=== PATIENT | female | born 1935 | race Caucasian/White ===

== ENCOUNTER → 2016-11-01 | Outpatient (CLI) | payer MEDICARE ==
[~2016-11-01] MED LIST: ACETAMINOPHEN PO; AMLO10TA2 PO; AMOX500C2 PO; ASCO500T20 PO; ASP325T PO; ASP81CT PO; ASPI-86; ASPI-892 PO; BENA40TA59 PO; BNZ40T PO; CA C1TAB53 PO; CA C1TAB80 PO; CALC600T PO; CALTRATE 600 +1 EACH PO; CARV25TA PO; CEPH500C PO; CHOL10003 PO; CRV25T PO; DCS100C PO; DOXY100C2 PO; E400C PO; ECHI350C PO; ECHI400C3 PO; ECHINACEA PO; EST.625T PO; EST30C VG; ESTR1TAB24 PO; GLUC1TAB PO; HYDR-707 PO; Ibuprofen PO; LUTE10TA PO; LUTE20CA2 PO; LUTE20TA PO; MAGN100T3 PO; MAGNESIUM W/ ZINC PO; MECL-124 PO; MELO-198 PO; MPR22T TP; MULT-142 PO; MULT-608 PO; MULT1TAB12 PO; OMEG-8 PO; OMEG100032 PO; OMG1KC PO; OXYC-197 PO; OXYC1TAB12 PO; PRM25T PO; TRM50T PO; VALS80TA30 PO; VLS80C PO
--- NOTE | 2016-11-01 14:29 | Diagnostic Imaging Report ---
PROCEDURE: MRI left joint lower extremity without contrast. TECHNIQUE: Multiplanar, multisequence non contrast-enhanced MRI of the left lower extremity was accomplished. INDICATION: Left knee pain. FINDINGS: There is a lobulated Evangelista's cyst seen measuring 2.9 x 1.9 x 7.7 cm with small amount of adjacent free fluid suggestive of leakage. There is a small suprapatellar effusion. The extensor mechanism appears intact. The ACL demonstrates increased signal with cystic changes in the tibia underneath its insertion site likely related to mucinous degeneration. There is no high-grade tear. The PCL demonstrates thickening and slight increased signal suggestive of an old injury. The posterior horn of the medial meniscus demonstrates a complex tear with displacement of the meniscus material and approximately 1 cm gap in the meniscus posterior horn. There is extension of the tear into the body of the meniscus. No definite tear in the anterior horn. The lateral meniscus demonstrates no definite tear. There is severe cartilage thinning in the medial compartment and mild cartilage thinning in the lateral compartment. The patellofemoral compartment demonstrates mild to moderate cartilage thinning in the lateral facet and severe cartilage thinning in the medial facet with subchondral edema seen. The lateral collateral ligament complex demonstrates no tears. There is mild edema compatible with sprain along the MCL. There is slight buckling of the MCL by partial extrusion of the body of the medial meniscus. IMPRESSION: 1. Leaking Evangelista's cyst. 2. Complex tear with displacement and a gap in the meniscus material in the posterior horn of the medial meniscus. 3. Advanced osteoarthritis changes with severe cartilage thinning in the medial compartment and in the medial aspect of the patella. Dictated by: Dictated on workstation # [id number]
== END ==
LOC: RAD 12:57
PROVIDERS: ATTEND Family Medicine
DX: M25.562 Pain in left knee (principal); M79.605 Pain in left leg
CPT/HCPCS: 73721

== ENCOUNTER 2016-12-20 09:57 | Outpatient (CLI) | payer MEDICARE ==
[~2016-12-20] VITALS: Ht 162.6 cm; Wt 70.0 kg
[~2016-12-20 09:57] MED LIST changes: -MULT-142 PO; -OMEG100032 PO; -OXYC-197 PO
[2016-12-20 10:07] VITALS: BP 129/59
[2016-12-20] MEDS ORDERED: OMEG100032 PO (10:22)
[2016-12-20] MEDS ORDERED: MULT-142 PO (10:22)
[2016-12-20] MEDS ORDERED: AMLO10TA2 PO (10:22)
[2016-12-20 11:03] LABS: BASOPHILS # (AUTO) 0.1 10^3/uL (0.0-0.1); BASOPHILS % (AUTO) 1 % (0-10); EOSINOPHILS # (AUTO) 0.1 10^3/uL (0.0-0.3); EOSINOPHILS % (AUTO) 2 % (0-10); LYMPHOCYTES # (AUTO) 1.7 X 10^3 (1.0-4.0); LYMPHOCYTES % (AUTO) 32 % (12-44); MEAN CORPUSCULAR HEMOGLOBIN 30 PG (25-34); MEAN CORPUSCULAR HGB CONC 34 G/DL (32-36); MEAN CORPUSCULAR VOLUME 90 FL (80-99); MEAN PLATELET VOLUME 9.4 FL (7.4-10.4); MONOCYTES # (AUTO) 0.4 X 10^3 (0.0-1.0); MONOCYTES % (AUTO) 8 % (0-12); NEUTROPHILS % (AUTO) 58 % (42-75); PLATELET COUNT 224 10^3/uL (130-400); RED BLOOD COUNT 4.31 10^6/uL (4.35-5.85); RED CELL DISTRIBUTION WIDTH 13.3 % (10.0-14.5); WHITE BLOOD COUNT 5.3 10^3/uL (4.3-11.0)
[2016-12-20 11:05] LABS: BILIRUBIN,URINE NEGATIVE (NEGATIVE); KETONES,URINE NEGATIVE (NEGATIVE); LEUKOCYTE ESTERASE ,URINE NEGATIVE (NEGATIVE); NITRITE,URINE NEGATIVE (NEGATIVE); PH,URINE 7 (5-9); PROTEIN,URINE NEGATIVE (NEGATIVE); UROBILINOGEN,URINE NORMAL (NORMAL)
[2016-12-20 11:15] LABS: SQUAMOUS EPITHELIAL CELL,UR RARE /HPF
[2016-12-20 11:19] LABS: PROTHROMBIN TIME PATIENT 12.7 SEC (12.2-14.7)
[2016-12-20 11:24] LABS: ERYTHROCYTE SEDIMENTATION RATE 11 MM/HR (0-30)
[2016-12-20 11:30] LABS: ALANINE AMINOTRANSFERASE 15 U/L (0-55); ALBUMIN 4.1 G/DL (3.2-4.5); ANION GAP 8 MMOL/L (5-14); ASPARTATE AMINO TRANSFERASE 24 U/L (5-34); BILIRUBIN,TOTAL 0.4 MG/DL (0.1-1.0); BLOOD UREA NITROGEN 13 MG/DL (7-18); BUN/CREATININE RATIO 19; CALCIUM 9.9 MG/DL (8.5-10.1); CARBON DIOXIDE 24 MMOL/L (21-32); CHLORIDE 107 MMOL/L (98-107); CREATININE SERUM 0.67 MG/DL (0.60-1.30); GFR ESTIMATED > 60; GLUCOSE 84 MG/DL (70-105); POTASSIUM 4.1 MMOL/L (3.6-5.0); SODIUM 139 MMOL/L (135-145); TOTAL PROTEIN 7.1 G/DL (6.4-8.2)
--- NOTE | 2016-12-20 13:35 | Diagnostic Imaging Report ---
INDICATION: Knee arthroplasty, preoperative evaluation. Compared 06/23/2013. FINDINGS: The heart size is felt to be within normal limits, and there is no abnormal distention of the vascularity. Ferrari thoracic spondylosis chronic. There is some old calcified benign granulomatous residua in the azygos portion of the mediastinum as well as right hilum. No noncalcified or suspicious chest nodule. There are postsurgical changes with bone anchor placed in the right humeral head. IMPRESSION: Benign granulomatous residua. No acute-appearing cardiopulmonary abnormality. Chronic degenerative and postoperative changes noted. Dictated by: Dictated on workstation # [id number]
== END 2016-12-20 11:00 | disposition home or self-care (01) ==
LOC: PREOP 09:57
PROVIDERS: ATTEND Orthopaedic Surgery
DX: Z01.811 Encounter for preprocedural respiratory examination (principal); Z01.812 Encounter for preprocedural laboratory examination; Z11.2 Encounter for screening for other bacterial diseases; M17.12 Unilateral primary osteoarthritis, left knee; R53.83 Other fatigue
CPT/HCPCS: 36415; 71020; 80053; 81000; 85025; 85610; 85652; 86850; 86900; 86901; 87081

== ENCOUNTER 2016-12-27 06:10 | Inpatient (IN) | payer MEDICARE ==
--- NOTE | 2016-12-25 07:26 | HISTORY AND PHYSICAL ---
DICTATING PHYSICIAN: Dr. Nick DATE OF ADMISSION: 12/27/2016 Inpatient admission for left total knee arthroplasty. HISTORY: The patient is a 81-year-old female with complaints of progressively worsening left knee pain. She reports activity limitations because of the knee. She has tried activity modifications, rest and anti-inflammatories without relief. She reports that she is unable to walk for exercise because of her knee, which is interfering with her cardiac rehab. Radiographs reveal moderate medial joint space and patellofemoral joint space narrowing. Due to functional impairment and failure to improve with conservative measures, the patient has elected to proceed with surgical intervention. REVIEW OF SYSTEMS: No chest pain, no shortness of breath. No dysuria. PAST MEDICAL HISTORY: 1. Congestive heart failure. 2. Hypertension. PAST SURGICAL HISTORY: 1. Cholecystectomy. 2. Hysterectomy. 3. Trigger finger. 4. Cataract. 5. Right rotator cuff. 6. Broken nose. FAMILY HISTORY: Noncontributory. PRIMARY CARE PROVIDER: Dr. Cleveland. Geophysics Scientist: Dr. Good ALLERGIES: MORPHINE. SOCIAL HISTORY: The patient is a former smoker who quit in 1952. She denies alcohol use. PHYSICAL EXAMINATION: The patient's well-developed, well-nourished, in no acute distress. HEENT: Normocephalic, atraumatic. Pupils are equal, round, and reactive. Oropharynx is clear. NECK: Supple with lymphadenopathy. LUNGS: Clear to auscultation. HEART: Regular rate and rhythm. ABDOMEN: Soft, nontender, nondistended. EXTREMITY EXAM: The left knee demonstrates a slight effusion. She is tender along her lateral joint line and has pain medially with Jessica's. She has mild varus alignment. No skin lesions are noted, sensation is intact throughout. She ambulates with an antalgic gait. She is unable to arise from a seated position without assistance due to her knee pain. She has negative straight leg raise. Sensation is intact throughout. She has negative straight leg raise. IMPRESSION: Severe left knee osteoarthritis, unresponsive to conservative measures. PLAN: Left total knee arthroplasty. The risks, benefits, options, ramifications and recovery were discussed at length with the patient. She understands and wishes to proceed. Job ID: [id number] Dictated Date: 12/19/2016 11:25:00 Digital Account Executive Date: 12/19/2016 12:18:52/christiano
[~2016-12-27] VITALS: Ht 162.6 cm; Wt 70.0 kg
[~2016-12-27 06:10] MED LIST changes: +MULT-142 PO; +OMEG100032 PO
[2016-12-27] MEDS: LACTATED RINGERS 1,000 ML IV PRN ×2 (06:53→08:38)
[2016-12-27] MEDS ORDERED: DEXAMETHASONE PF 10 MG/ML (DECADRON) VIAL ONE (07:06)
[2016-12-27] MEDS ORDERED: ONDANSETRON 4 MG/2 ML (SDV) Z0FRAN ONE (07:06)
[2016-12-27] MEDS ORDERED: proPOfol 200 MG/20 ML (DIPRIVAN) VIAL IV ONE (07:06)
[2016-12-27] MEDS ORDERED: LIDOCAINE PF 2% 10 ML (XYLOCAINE) AMP ONE (07:06)
[2016-12-27] MEDS ORDERED: SEVOFLURANE (ULTANE) 15 ML INHAL SOLN ONE (07:06)
[2016-12-27] MEDS ORDERED: LACTATED RINGERS 1,000 ML IV ONE ×2 (07:06→08:36)
[2016-12-27] MEDS ORDERED: fentaNYL INJECTION 250 MCG/5 ML AMP ONE (07:06)
[2016-12-27] MEDS ORDERED: ACETAMINOPHEN 325 MG TABLET/CAPLET (TYLENOL) PO PRN (07:15)
[2016-12-27] MEDS ORDERED: oxyCODONE/APAP 5/325MG (PERCOCET 5) TABLET PO PRN (07:15)
[2016-12-27] MEDS ORDERED: diphenhydrAMINE 50 MG/ML INJ (BENADRYL) IVP PRN (07:15)
[2016-12-27] MEDS ORDERED: ONDANSETRON 4 MG/2 ML (SDV) Z0FRAN IVP PRN ×2 (07:15→09:30)
[2016-12-27] MEDS ORDERED: fentaNYL INJECTION 1,000 MCG in NS (IVPB) 80 ML IV SCH (07:15)
[2016-12-27] MEDS ORDERED: CEFUROXIME 1.5 GM/NS 50 ML IVPB IV ONE ×2 (07:15)
--- NOTE | 2016-12-27 07:24 | Progress Note-Pre Operative ---
Pre-Operative Progress Note H&P Reviewed The H&P was reviewed, patient examined and no changes noted. Date H&P Reviewed: Dec 27, 2016 Time H&P Reviewed: 07:11 Pre-Operative Diagnosis: left knee primary osteoarthritis MATA HART MD Dec 27, 2016 07:24
--- NOTE | 2016-12-27 07:25 | Progress Note-Post Operative ---
Post-Operative Progess Note Surgeon (s)/Personal Secretary (s) Surgeon MATA HART MD Personal Secretary: Hector Mcmillan Pre-Operative Diagnosis left knee primary osteoarthritis Post-Operative Diagnosis left knee primary osteoarthritis Post-Op Procedure Note Date of Procedure: Dec 27, 2016 Name of Procedure Performed: left total knee arthroplasty Description of the Procedure: see operative note Findings of the Procedure osteoarthritis Anesthesia Type GETA Estimated blood loss (mL): minimal Packing: none Specimen(s) collected/removed none MATA HART MD Dec 27, 2016 07:25
[2016-12-27] MEDS ORDERED: ROCURONIUM 50 MG/5 ML (ZEMURON) VIAL IV ONE (08:00)
[2016-12-27] MEDS ORDERED: GLYCOPYRROLATE 0.2 MG/ML (ROBINUL) 2 ML VIAL ONE (08:28)
[2016-12-27] MEDS ORDERED: NEOSTIGMINE (BLOXIVERZ ) 1 MG/1ML 10 ML VIAL ONE (08:28)
[2016-12-27] MEDS ORDERED: fentaNYL INJECTION 100 MCG/2 ML AMP IVP PRN (09:30)
[2016-12-27] MEDS ORDERED: HYDROmorphone (DILAUDID) 2 MG/ML VIAL IVP PRN (09:30)
--- NOTE | 2016-12-27 09:42 | Diagnostic Imaging Report ---
INDICATION: Left knee pain AP and lateral views of left knee show postoperative changes from left knee arthroplasty. The components of the prosthesis are in good position. Alignment is normal. IMPRESSION: Good alignment left knee following arthroplasty. Dictated by: Dictated on workstation # [id number]
[2016-12-27 10:20] VITALS: BP 106/52
--- NOTE | 2016-12-27 10:32 | Progress Note-Standard ---
Standard Progress Note Progress Notes/Assess & Plan Progress/Assessment & Plan Post op check No complaints Radiographs--HW well positioned without fracture LLE--2 plus DP pulse with intact sensation throughout. Intact DF and PF of toes and ankle s/p LTKA mobilize as able MATA HART MD Dec 27, 2016 10:32
[2016-12-27] MEDS ORDERED: OXYC-197 PO (10:35)
[2016-12-27] MEDS ORDERED: fentaNYL PCA 300 MCG/30 ML VIAL ONE (10:59)
[2016-12-27] MEDS: NS IV 1000 ML 1,000 ML IV SCH ×2 (11:04→23:03)
--- NOTE | 2016-12-27 11:18 | Consultation-Hospitalist ---
HPI History of Present Illness: HPI/Chief Complaint CC: Medical management following left total knee arthroplasty uncomplicated by Dr Nick HPI: This is a 81yoWF patient of Dr Cleveland's that presents to [facility] following an uncomplicated left knee replacement per Dr Nick. Her Chronic Manager is Dr Good whom I am consulting for close monitoring. Pt is currently sleeping and the family is at the bedside and her daughter is an RN at [facility]. I reviewed her medical hx and home meds. Will monitor labs closely and check iron level. Source: family Exam Limitations: clinical condition (post op sedation) Date Seen 12/27/16 Attending Physician Tito Nick MD PCP Luis Alberto Cleveland MD Referring Physician Date of Admission Dec 27, 2016 at 06:10 Home Medications & Allergies Home Medications Reviewed patient Home Medication Reconciliation Form Allergies Allergies Coded Allergies morphine (Verified Allergy, Mild, 04/12/13) Past Kukfvgv-Esaujv-Vywzpx Hx Patient Social History Alcohol Use: Denies Use Recreational Drug Use: No Smoking Status: Former Smoker Physical Abuse Screen: No Sexual Abuse: No Recent Foreign Travel: No Contact w/other who traveled: No Recent Hopitalizations: No Recent Infectious Disease Expo: No Immunizations Up To Date Tetanus Booster (TDap): Less than 5yrs Date of Pneumonia Vaccine: Jun 17, 2005 Date of Influenza Vaccine: Jun 17, 2016 Seasonal Allergies Seasonal Allergies: Yes Surgeries HX Surgeries: Yes (CATARACT REMOVAL, SHOULDER SX, SEVERAL SX ON FINGERS FOR ARTHRITIS) Surgeries: Eye Surgery, Orthopedic Respiratory Hx Respiratory Disorders: No Cardiovascular Hx Cardiovascular Disorders: Yes (LEFT BUNDLE BRANCH BLOCK, CHF) Cardiac Disorders: Cardiomyopathy, Hypertension Neurological Hx Neurological Disorders: No Reproductive System Hx Reproductive Disorders: No Genitourinary Hx Genitourinary Disorders: Yes (PROLAPSED BLADDER) Gastrointestinal Hx Gastrointestinal Disorders: No Musculoskeletal Hx Musculoskeletal Disorders: Yes Musculoskeletal Disorders: Arthritis Endocrine Hx Endocrine Disorders: No HEENT HX ENT Disorders: Yes HEENT Disorders: Cataract, Macular Degeneration Cancer Hx Cancer: No Psychosocial Hx Psychiatric Problems: No Integumentary HX Skin/Integumentary Disorder: No Blood Transfusions Hx Blood Disorders: No Family Medical History Significant Family History: No Pertinent Family Hx Family Hx: Arthritis 19 MOTHER G8 SISTER Asthma 19 MOTHER Cardiovascular disease G8 BROTHER G8 SISTER Cataracts G8 BROTHER G8 SISTER Colon cancer G8 SISTER Deafness or hearing loss G8 SISTER Diabetes mellitus G8 BROTHER G8 SISTER Glaucoma 19 FATHER Hypercholesterolemia G8 BROTHER Hypertension 19 MOTHER G8 BROTHER G8 SISTER Kidney disease G8 BROTHER Osteoporosis G8 SISTER Thyroid disease G8 SISTER Tuberculosis 19 FATHER No Family History of: AIDS Abdominal aortic aneurysm Cowlitz's disease Alcoholism Alzheimer's disease Aphasia Cancer of mouth Completed stroke Congenital disease Congenital heart disease Coronary thrombosis Cystic fibrosis Dementia Drug abuse Dysphasia Fibrocystic disease of breast Gastroenteritis Headache disorder Infertility Myocardial infarction Neoplasm Parkinson's disease Prostate cancer Psychosocial problem Respiratory disorder Seizure disorder Severe allergy Visual disorder Review of Systems ROS-Unable to Obtain: pt sleeping Constitutional: see HPI Musculoskeletal: joint pain (left ankle pain prior to surgery) Physical Exam Physical Exam Vital Signs Vital Sign - Last 12Hours 12/27/16 11:10 Resp 16 Capillary Refill : General Appearance: No Apparent Distress, WD/WN, Chronically ill, Other ( sleeping soundly) Eyes: Bilateral Eye Normal Inspection, Bilateral Eye PERRL Neck: Normal Inspection, Supple Respiratory: Chest Non Tender, Lungs Clear, Normal Breath Sounds, No Accessory Muscle Use, No Respiratory Distress Cardiovascular: Regular Rate, Rhythm, No Edema, No Gallop, No JVD, No Murmur, Normal Peripheral Pulses Gastrointestinal: Normal Bowel Sounds, No Organomegaly, Soft Back: Normal Inspection Extremity: Normal Capillary Refill, Normal Inspection, Non Tender, No Calf Tenderness, No Pedal Edema, Other (left knee in dressing) Neurologic/Psychiatric: No Motor/Sensory Deficits, Other (sleeping post op) Skin: Normal Color, Warm/Dry Lymphatic: No Adenopathy Assessment/Plan Admission Diagnosis Assessment: Left total knee arthroplasty POD # 0 HTN Cardiomyopathy non-ischemic type 30% EF on cardiac cath HLP PHTN OA Assessment and Plan Plan: Cardiology consultation Minimize fluid to prevent overload Pain meds PT/OT BM regimen Check iron level along with basic labs daily Clinical Quality Measures DVT/VTE Risk/Contraindication: Risk Factor Score Per Nursin RFS Level Per Nursing on Admit: 4+=Very High JIM CORTEZ DO Dec 27, 2016 11:18
[2016-12-27] MEDS: SENNA W/DOCUSATE (SENOKOT S) TABLET PO SCH ×2 (11:37→20:32)
--- NOTE | 2016-12-27 11:53 | Consultation-Cardiology ---
HPI-Cardiology Cardiology Consultation Date of Consultation 12/27/16 Date of Admission Indication: Hx CHF, HTN HPI Patient is a very pleasant 81 y/o female with history of CHF, HTN, HLP. Underwent Left total knee athroplasty by Dr. Nick earlier today. Complaining on mild leg pain. Denies any CP, dyspnea, dizziness, lightheadedness. Patient is resting comfortably at this time. Patient was seen and evaluated with Daria, laying down comfortably in bed. Denied any pain at this time, had extensive cardiac history as described above, underwent arthroplasty with Dr. Nick, recovering well. Home Medications & Allergies Allergies: Coded Allergies: morphine (Verified Allergy, Mild, 04/12/13) Home Medication List Reviewed: Yes IJP-Eljnrr-Rjfmuo Hx Patient Social History Marital Status: Employed/Student: retired Alcohol Use: Denies Use Recreational Drug Use: No Smoking Status: Former Smoker Recent Foreign Travel: No Recent Infectious Disease Expo: No Recent Hopitalizations: No Physical Abuse Screen: No Sexual Abuse: No Immunizations Up To Date Tetanus Booster (TDap): Less than 5yrs Date of Pneumonia Vaccine: Jun 17, 2005 Date of Influenza Vaccine: Jun 17, 2016 Past Medical History CHF, HTN Family Medical History Significant Family History: No Pertinent Family Hx Family History: Arthritis 19 MOTHER G8 SISTER Asthma 19 MOTHER Cardiovascular disease G8 BROTHER G8 SISTER Cataracts G8 BROTHER G8 SISTER Colon cancer G8 SISTER Deafness or hearing loss G8 SISTER Diabetes mellitus G8 BROTHER G8 SISTER Glaucoma 19 FATHER Hypercholesterolemia G8 BROTHER Hypertension 19 MOTHER G8 BROTHER G8 SISTER Kidney disease G8 BROTHER Osteoporosis G8 SISTER Thyroid disease G8 SISTER Tuberculosis 19 FATHER No Family History of: AIDS Abdominal aortic aneurysm Canyon's disease Alcoholism Alzheimer's disease Aphasia Cancer of mouth Completed stroke Congenital disease Congenital heart disease Coronary thrombosis Cystic fibrosis Dementia Drug abuse Dysphasia Fibrocystic disease of breast Gastroenteritis Headache disorder Infertility Myocardial infarction Neoplasm Parkinson's disease Prostate cancer Psychosocial problem Respiratory disorder Seizure disorder Severe allergy Visual disorder Constitutional: No chills, No diaphoresis, No dizziness, No fever, No malaise EENTM: No blurred vision, No double vision, No vision loss Respiratory: No cough, No dyspnea on exertion Cardiovascular: No chest pain, No palpitations Gastrointestinal: No abdominal pain, No constipation Genitourinary: No dysuria, No frequency, No hematuria Musculoskeletal: No back pain, No joint pain Skin: No lesions, No rash Psychiatric/Neurological: Denies Anxiety, Denies Depressed ECG Impression ECG Initial ECG Rhythm: Normal Sinus Physical Exam Vital Signs Vital Sign - Last 12Hours 12/27/16 11:10 Resp 16 Capillary Refill : General Appearance: No Apparent Distress, WD/WN HEENT: PERRL/EOMI, TMs Normal, Normal ENT Inspection, Pharynx Normal Neck: Full Range of Motion, Normal Inspection, Non Tender, Supple Respiratory: Chest Non Tender, Lungs Clear, Normal Breath Sounds, No Accessory Muscle Use, No Respiratory Distress Cardiovascular: Regular Rate, Rhythm, No Edema, No Gallop, No JVD, No Murmur, Normal Peripheral Pulses Gastrointestinal: Non Tender, Soft Rectal: Deferred Back: No CVA Tenderness Extremity: No Calf Tenderness, Pedal Edema (LLE) Neurologic/Psychiatric: Alert, Oriented x3, potato peeler II-XII Norm as Tested Skin: Normal Color, Warm/Dry Lymphatic: No Adenopathy A/P-Cardiology Assessment/Plan S/P Left total knee athroplasty by Dr. Ruiz, POD #1. History of syncope, unknown etiology, no further syncopal episodes were reported, she was having some orthostatic dizziness, reported improvement. Unable to tolerate beta blockers.Continue to monitor. Congestive heart failure with chronic compensated left ventricular diastolic dysfunction, normal systolic function with ejection fraction 60 percent, moderate mitral regurgitation, moderate tricuspid regurgitation, moderate aortic regurgitation, pulmonary artery pressure of 35-40 mmHg, last echocardiogram was done in February 2016. Continue to monitor. Hypertension,history of hypotension in the past. Continue to monitor blood pressure. Hyperlipidemia, last lipid profile was done in June 2016, total cholesterol 218 HDL 84 triglyceride 91, LDL 116. Continue current medications and continue to monitor. Cardiac catheterization was done in June 2010 showing no significant obstructive disease, ejection fraction at that time was 25-30 percent it has improved since then. Continue to monitor. Pulmonary hypertension with most recent PA pressure 35-40 mmHg, continue to monitor Chronic left bundle branch block Mild bilateral nonobstructive carotid artery stenosis. Continue to monitor. Thank you for allowing us to participate in the management of Mrs. Sykes. This is Daria Reardon PA-C as a scribe for Dr. Good. Patient was seen and evaluated with Daria, I agree with the current scribe, I performed the physical examination by myself and interviewed the patient, on examination her lungs were clear to auscultation bilaterally, heart is regular rate and rhythm, she underwent a knee arthroplasty with Dr. Nick, had history of syncope, history of congestive heart failure with chronic compensated left ventricular diastolic dysfunction, normal systolic function with ejection fraction 60 percent, hypertensive heart disease, moderate mitral and aortic regurgitation, pulmonary artery pressure of 35-40 mmHg, she has history of hypertension and hyperlipidemia. Mild coronary artery disease, I will continue to monitor her at this time. No changes are recommended, I did a few minor modification to the note and used Italic Font Clinical Quality Measures DVT/VTE Risk/Contraindication: Risk Factor Score Per Nursin RFS Level Per Nursing on Admit: 4+=Very High DARIA AL Dec 27, 2016 11:53 ANNABEL GOOD MD Dec 27, 2016 13:56
--- NOTE | 2016-12-27 11:56 | OPERATIVE REPORT ---
PROCEDURE PHYSICIAN: MATA HART DATE OF PROCEDURE: 12/27/2016 PREOPERATIVE DIAGNOSIS: Left knee primary osteoarthritis. POSTOPERATIVE DIAGNOSIS: Left knee primary osteoarthritis. PROCEDURE: Left total knee arthroplasty. SURGEON: Park ACCOUNTING MACHINE MECHANIC: Hector Mcmillan who assisted throughout the procedure and closed the incision. ANESTHESIA: General endotracheal by Dr. Palmer. TOURNIQUET TIME: Approximately 65 minutes at 300 mmHg. ESTIMATED BLOOD LOSS: Minimal. DRAINS: None. COMPLICATIONS: None. POSTOPERATIVE PLAN: Routine protocol. MATERIALS: Microport cemented size 3 femur, cemented size 3 tibia with a 12 mm insert and a cemented size 32 patellar button. The patient was transported to the recovery awake, in stable condition STATEMENT OF MEDICAL NECESSITY: The patient is a 81-year-old female with progressive worsening left knee pain. Radiographs revealed complete loss of medial and patellofemoral joint spaces. The patient reported activity limitations because of the knee and she was unable to participate in her cardiac rehabilitation because of her knee and due to functional impairment and failure to improve with conservative measures, the patient elected to proceed with surgical intervention. PROCEDURE: After risks and benefits of the procedure were discussed and questions were answered. Informed consent was signed and placed on chart. The operative site was confirmed in the preoperative holding and initialed by the surgeon. The patient was then transported to the operating room and after adequate levels of general endotracheal anesthetic were obtained, a timeout was called confirming the operative site. The left lower extremity was prepped and draped usual sterile fashion. With the leg elevated and the knee flexed, the tourniquet was inflated to 300 mmHg. A standard anterior approach was utilized. Hemostasis was obtained with cautery. A medial parapatellar arthrotomy was performed leaving 1 cm cuff on the patella for later reattachment. A portion of fat pad was resected and subperiosteal release was performed in the proximal medial tibia with a curved osteotome. The ACL was resected. The intramedullary guide was passed into the femur and the distal cutting block was placed and distal cut was made. The sizer was then placed. The femur was sized to size 3 and the 3 cutting block was placed parallel to the epicondylar axis and cuts were made from posterior to anterior. Subperiosteal release was then carefully performed on the posterior distal femur being careful to stay on the bony surface with a curved osteotome. Attention was then turned to the tibia. The intramedullary guide was passed into the tibia. The cutting block was placed. The drop august transected the intermalleolar axis and the cut was made. The 3 baseplate was placed and again the drop august transected the intermalleolar axis. This was prepared with a drill and Keel punch. The femoral trial was placed and the trochlear cut was made. A 12 mm insert was placed and the patella was prepared using the free hand technique and resecting 10 mm off the undersurface. The peg guide was placed and peg holes were drilled. The trial was placed for the patella. The knee demonstrates full extension, 130 degrees of flexion with gravity. The patella tracked well. There was no anterior/posterior or medial/lateral laxity in flexion or extension. The trials were removed. The joint was copiously irrigated with pulse lavage. Periarticular block was placed in the posterior capsule, medial and lateral retinaculum extensor mechanism and subcutaneous tissues. The bone ends were irrigated and dried and the tibial base plate was cemented into position. Excessive cement was removed. The superior surface was irrigated and dried and the polyethylene insert was placed. The distal femur was irrigated and dried and the femoral prosthesis was cemented into position. Excessive cement was removed from the tibia and the femur. The knee was brought out in full extension and held in this position until the cement had cured the undersurface of patella was irrigated and dried. The patellar button was cemented into position, again removing excessive cement. Once the cement had cured the knee was taken through a range of motion and full extension easily obtained, 130 degrees of flexion with gravity was easily obtained. The patella tracked well. There was no anterior/posterior or medial/lateral laxity in flexion or extension. The joint was further irrigated with pulse lavage and the arthrotomy was closed with number 2 Tevdek in [id number] interrupted fashion. The knee was taken through a range of motion with no undue tension noted at the repair site. The patella tracked well. Subcutaneous tissues were irrigated and dried and 0 Vicryl was used to close the deep subcutaneous tissue. 2-0 Vicryl for the superficial subcutaneous tissue. Bohannon used on the skin. A soft dressing was applied and the patient was then transported to the recovery room, after deflating the tourniquet, awake, in stable condition. Job ID: [id number] Dictated Date: 12/27/2016 09:15:45 Metals Analyst Date: 12/27/2016 11:45:54 / christiano
--- NOTE | 2016-12-27 14:10 | Physical Therapy Evaluation ---
PT Evaluation-General Medical Diagnosis Admission Date Dec 27, 2016 at 06:10 Medical Diagnosis: left TKA Onset Date: Dec 27, 2016 Therapy Diagnosis Therapy Diagnosis: impaired mobility, strength, ROM Height/Weight Height (Feet): 5 Height (Inches): 4.00 Weight (Pounds): 154 Weight (Ounces): 5.0 Precautions Precautions/Isolations: Standard Precautions Weight Bear Status Weight Bearing Restriction: Weight Bearing/Tolerated Location Restriction: L LE Referral Physician: Hector Mcmillan Reason for Referral: Evaluation/Treatment Medical History Pertinent Medical History: HTN Additional Medical History CHF, surg (cholectystectomy, hysterectomy, trigger finger, cataract, right rotator cuff, broken nose) Current History progressively worsening left knee pain, elective surgery Reviewed History: Yes Social History Home: Single Level Current Living Status: Spouse Entry Into Home: Stairs With Railing PT Steps Into Home: 3 Prior/Core FIM Prior Level of Function Functional [place] Measure 0=Not Assessed/NA 4=Minimal Assistance 1=Total Assistance 5=Supervision or Setup 2=Maximal Assistance 6=Modified [place] 3=Moderate Assistance 7=Complete [place] Bed Mobility: 7 Transfers (B,C,W/C) (FIM): 7 Gait: 7 PT Evaluation-Current Subjective Patient in bed pre tx, reluctantly agrees to PT, patient is pretty drowsy and slow to process, she has no complaints of pain at rest in her bed. Pt/Family Goals to be independent at home Objective Patient Orientation: Person, Place, Situation Attachments: IV ROM/Strength ROM Lower Extremities left knee flexion 80 degrees, extension +5 degrees Strenght Lower Extremities NT due to recent surgery Integumentary/Posture Bowel Incontinence: No Bladder Incontinence: No Neuromuscular (Tone, Coordination, Reflexes) WNL Sensory Vision: Functional Hearing: Functional Sensation Right Lower Extremit: Intact Sensation Left Lower Extremity: Intact Transfers Functional [place] Measure 0=Not Assessed/NA 4=Minimal Assistance 1=Total Assistance 5=Supervision or Setup 2=Maximal Assistance 6=Modified [place] 3=Moderate Assistance 7=Complete [place] Transfers (B, C, W/C) (FIM): 4 Scootin Rollin Supine to/from Sit: 4 Sit to/from Stand: 4 Patient needs min assist for supine to sit and to stand, cues for safety and hand placement. Gait Mode of Locomotion: Walk Anticipated Mode of Locomotion: Walk Gait (FIM): 1 Distance: 15'x2 Gait Level of Assist: 4 Gait Persons Needed: 1 Gait Assistive Device: FWW Comments/Gait Description Patient ambulated to the bathroom, used it, and ambulated back to her bed. She was CGA with ambulation, has flexed left knee, does not bear full weight on it. Balance Sitting Static: Normal Sitting Dynamic: Normal Standing Static: Good Standing Dynamic: Good Treatment total knee protocol for left knee x10 (AP, QS, HS, SAQ, SLR) Assessment/Needs Patient has impaired mobility, strength, and ROM post left TKA. Rehab Potential: Fair PT Signal Helper Goals Custodial Goals PT Signal Helper Goals Time Frame: Jan 03, 2017 Transfers (B,C,W/C) (FIM): 5 Gait (FIM): 2 Distance: 50' Gait Level of Assist: 5 Gait Assistive Device: FWW PT Plan Problem List Problem List: Activity Tolerance, Functional Strength, Safety, Balance, Gait, Transfer, Bed Mobility, ROM Treatment/Plan Treatment Plan: Continue Plan of Care Treatment Plan: Bed Mobility, Education, Functional Activity Winnie, Functional Strength, Gait, Safety, Therapeutic Exercise, Transfers Treatment Duration: Jan 03, 2017 # of days/week 5-6 Visits Per Week: 10-11 Minutes/Day (M-F): 15-30 Minutes/Day (Sat/[place]): 15-30 Pt/Family Agrees w/Plan: Yes Safety Risks/Education Patient Education: Gait Training, Transfer Techniques, Correct Positioning, Disease Process, Safety Issues Teaching Recipient: Patient Teaching Methods: Demonstration, Discussion Response to Teaching: Reinforcement Needed Discharge Recommendations Plan Patient will perform bed mobility and transfer training, balance and endurance training, functional strengthening, stair training, gait training, and education , to improve functional mobility and independence at home. Therapy D/C Recommendations: Home w/ Family Support Time/GCodes Time In: 1315 Time Out: 1400 Total Billed Treatment Time: 45 Total Billed Treatment 1 visit EVL 15 min GT 15 min EX 15 min KENNEDY CHOWDHURY PT Dec 27, 2016 14:10
[2016-12-27] MEDS: CEFUROXIME INJECTION 750 MG in NS (IVPB) 50 ML IV SCH ×2 (15:18→22:25)
[2016-12-27] MEDS ORDERED: METOCLOPRAMIDE INJ 10 MG/2 ML (REGLAN) IV PRN (15:30)
[2016-12-27] MEDS ORDERED: NALOXONE 0.4 MG/ML 1 ML (NARCAN) VIAL IV PRN (15:30)
[2016-12-27 16:05] VITALS: BP 116/69
[2016-12-27] MEDS: fentaNYL PCA 300 MCG/30 ML VIAL IV PRN (18:35)
[2016-12-27 19:45] VITALS: BP 125/70
[2016-12-28] VITALS: BP 107/58
[2016-12-28 04:00] VITALS: BP 108/55
[2016-12-28] MEDS: MULTIVIT W/MINERALS TAB (THERAGRAN M) PO SCH (06:18)
--- NOTE | 2016-12-28 06:59 | Progress Note-Standard ---
Standard Progress Note Progress Notes/Assess & Plan Progress/Assessment & Plan Post op check No complaints Radiographs--HW well positioned without fracture LLE--2 plus DP pulse with intact sensation throughout. Intact DF and PF of toes and ankle s/p LTKA mobilize as able Final Diagnosis No complaints comfortable Vital Signs Date Time Temp Pulse Resp B/P (MAP) Pulse Ox O2 Delivery O2 Flow Rate FiO2 12/28/16 05:13 16 12/28/16 04:00 97.0 70 16 108/55 97 Room Air 12/28/16 00:00 99.6 78 16 107/58 99 Room Air 12/27/16 20:00 Room Air 12/27/16 19:45 99.4 101 24 125/70 97 Room Air 12/27/16 18:54 16 12/27/16 18:35 16 12/27/16 16:05 98.4 92 16 116/69 97 Room Air 12/27/16 11:10 16 12/27/16 10:20 96.1 82 16 106/52 97 Room Air 12/27/16 10:20 Room Air I & O 12/28/16 07:00 Intake Total 3199 ml Balance 3199 ml LLE--dressing intact. able to perform SLR. No calf tenderness. NVI distally s/p LTKA doing very well PT/OT MATA Greenberg MD Dec 28, 2016 06:59
[2016-12-28 07:15] LABS: BASOPHILS % (AUTO) 0 % (0-10); EOSINOPHILS % (AUTO) 0 % (0-10); LYMPHOCYTES # (AUTO) 1.7 X 10^3 (1.0-4.0); LYMPHOCYTES % (AUTO) 16 % (12-44); MEAN CORPUSCULAR HEMOGLOBIN 30 PG (25-34); MEAN CORPUSCULAR HGB CONC 33 G/DL (32-36); MEAN CORPUSCULAR VOLUME 91 FL (80-99); MEAN PLATELET VOLUME 9.9 FL (7.4-10.4); MONOCYTES # (AUTO) 0.9 X 10^3 (0.0-1.0); MONOCYTES % (AUTO) 8 % (0-12); NEUTROPHILS # (AUTO) 8.1 X 10^3 (1.8-7.8); NEUTROPHILS % (AUTO) 75 % (42-75); PLATELET COUNT 194 10^3/uL (130-400); RED BLOOD COUNT 3.34 10^6/uL (4.35-5.85); RED CELL DISTRIBUTION WIDTH 13.1 % (10.0-14.5); WHITE BLOOD COUNT 10.8 10^3/uL (4.3-11.0)
[2016-12-28 07:39] LABS: ANION GAP 10 MMOL/L (5-14); BLOOD UREA NITROGEN 12 MG/DL (7-18); BUN/CREATININE RATIO 18; CARBON DIOXIDE 23 MMOL/L (21-32); CHLORIDE 106 MMOL/L (98-107); CREATININE SERUM 0.66 MG/DL (0.60-1.30); POTASSIUM 3.8 MMOL/L (3.6-5.0); SODIUM 139 MMOL/L (135-145)
[2016-12-28 07:40] LABS: ALANINE AMINOTRANSFERASE 18 U/L (0-55); ALBUMIN 3.6 G/DL (3.2-4.5); ASPARTATE AMINO TRANSFERASE 26 U/L (5-34); BILIRUBIN,TOTAL 0.6 MG/DL (0.1-1.0); CALCIUM 9.5 MG/DL (8.5-10.1); GFR ESTIMATED > 60; GLUCOSE 104 MG/DL (70-105); TOTAL PROTEIN 6.1 G/DL (6.4-8.2)
[2016-12-28 08:00] VITALS: BP 127/74
[2016-12-28] MEDS ORDERED: ASPIRIN E.C. 81 MG (ECOTRIN) TAB PO SCH (08:00)
[2016-12-28] MEDS: NS IV 1000 ML 1,000 ML IV SCH ×2 (08:13→21:04)
[2016-12-28] MEDS: SENNA W/DOCUSATE (SENOKOT S) TABLET PO SCH ×2 (08:14→21:06)
[2016-12-28] MEDS: ENOXAPARIN 30 MG/0.3 ML (LOVENOX) SYR SC SCH ×2 (08:15→21:06)
--- NOTE | 2016-12-28 09:00 | Cardiology Progress Note ---
Subjective Subjective/Events-last exam patient is laying down in bed, feeling better, denied any chest pain or shortness of breath. Denied any palpitation Review of Systems General: No Chills, No Night Sweats, No Fatigue, No Malaise, No Appetite, No Other HEENT: No Head Aches, No Visual Changes, No Eye Pain, No Ear Pain, No Dysphasia , No Sinus Congestion, No Post Nasal Drip, No Sore Throat, No Other Pulmonary: No Dyspnea, No Cough, No Pleuritic Chest Pain, No Other Cardiovascular: No: Chest Pain, Edema, Lt Headedness, Orthopnea, Other, Palpitations, Paroxysmal Noc. Dyspnea Objective-Cardiology Exam Last Set of Vital Signs Vital Signs 12/28/16 12/28/16 12/28/16 04:00 05:13 08:14 Temp 97.0 Pulse 70 Resp 16 B/P (MAP) 108/55 Pulse Ox 97 O2 Delivery Room Air Capillary Refill : I&O Bad tableGeneral: Alert, Oriented X3, Cooperative HEENT: Atraumatic, PERRLA Neck: Supple, No JVD, No Thyromegaly Lungs: Clear to Auscultation, Normal Air Movement Heart: Regular Rate, Normal S1, Normal S2, No Murmurs Abdomen: Normal Bowel Sounds, Soft, No Tenderness, No Hepatosplenomegaly, No Masses Extremities: No Clubbing, No Cyanosis, No Edema, Normal Pulses, No Tenderness/ Swelling Skin: No Rashes, No Breakdown, No Significant Lesion Neuro: Normal Gait, Normal Speech, Strength at 5/5 X4 Ext, Normal Tone, Sensation Intact Psych/Mental Status: Mental Status NL, Mood NL Results Lab Laboratory Tests 12/28/16 06:30 A/P-Cardiology Admission Diagnosis Congestive heart failure, chronic compensated left ventricular systolic dysfunction Hypertension Hyperlipidemia Mitral regurgitation Assessment/Plan S/P Left total knee athroplasty by Dr. Ruiz, POD #1. History of syncope, unknown etiology, no further syncopal episodes were reported, she was having some orthostatic dizziness, reported improvement. Unable to tolerate beta blockers.Continue to monitor. Congestive heart failure with chronic compensated left ventricular diastolic dysfunction, normal systolic function with ejection fraction 60 percent, hypertensive heart disease, moderate mitral regurgitation, moderate tricuspid regurgitation, moderate aortic regurgitation, pulmonary artery pressure of 35- 40 mmHg, last echocardiogram was done in February 2016. Continue to monitor. Hypertension,history of hypotension in the past. restart home medications and monitor Hyperlipidemia, last lipid profile was done in June 2016, total cholesterol 218 HDL 84 triglyceride 91, LDL 116. Continue current medications and continue to monitor. Cardiac catheterization was done in June 2010 showing no significant obstructive disease, ejection fraction at that time was 25-30 percent it has improved since then. Continue to monitor. Pulmonary hypertension with most recent PA pressure 35-40 mmHg, continue to monitor Chronic left bundle branch block Mild bilateral nonobstructive carotid artery stenosis. Continue to monitor. Clinical Quality Measures DVT/VTE Risk/Contraindication: Risk Factor Score Per Nursin RFS Level Per Nursing on Admit: 4+=Very High ANNABEL PURI MD Dec 28, 2016 09:00
--- NOTE | 2016-12-28 10:42 | Physical Therapy Daily Note ---
PT Daily Note-Current Subjective Patient is in bed and agrees to PT. Pain Numeric Pain Scale: 5-Moderate Pain Location: Left Location Body Site: Knee Pain Description: Acute Mental Status Patient Orientation: Normal For Age Attachments: IV BOW MAKER Transfers Functional [place] Measure 0=Not Assessed/NA 4=Minimal Assistance 1=Total Assistance 5=Supervision or Setup 2=Maximal Assistance 6=Modified [place] 3=Moderate Assistance 7=Complete IndependenceIRFPAI Quality Coding Scale 6 Independent with activity with or without an assistive device 5 Patient requires set up or clean up by helper. Patient completes activity by themselves 4 Supervision or touching assist (CGA). [place] provide cues , steadying assist 3 The helper provides less than half the effort to complete the activity 2 The helper provides more than half the effort to complete the activity 1 Dependent. The helper does all the effort to complete an activity 7 Patient refused to complete or attempt activity 9 The patient did not perform the activity before the current illness or injury 88 Not attempted due to Medical conditions or safety concerns Transfers (B, C, W/C) (FIM): 5 Scootin Rollin Supine to/from Sit: 5 Sit to/from Stand: 5 Weight Bearing Weight Bearing Restriction: Weight Bearing/Tolerated Location Restriction: L LE Gait Training Gait (FIM): 5 Distance (FIM): 3=150 ft Distance: 150' Gait Level of Assist: 5 Gait Persons Needed: 1 Gait Assistive Device: FWW step to gait sequence, antalgic gait Exercises Supine Ex: Ankle pumps, Quad Set, Heel Slides, Straight leg raise Supine Reps: 10 Seated Therapy Exercises: Long arc quads Seated Reps: 15 Treatments CPM 0---[address] with polar pack Assessment Patient tolerated treatment well. Education with patient on proactive pain control with utilizing pain pills, as well as, BOW MAKER to increase rehab potential. PT Wrong Address Clerk Goals Wrong Address Clerk Goals PT Fdc Goals Time Frame: Jan 03, 2017 Transfers (B,C,W/C) (FIM): 5 Gait (FIM): 2 Distance: 50' Gait Level of Assist: 5 Gait Assistive Device: FWW PT Plan Treatment/Plan Treatment Plan: Continue Plan of Care Treatment Plan: Bed Mobility, Education, Functional Activity Winnie, Functional Strength, Gait, Safety, Therapeutic Exercise, Transfers Treatment Duration: Jan 03, 2017 Visits Per Week: 10-11 Minutes/Day (M-F): 15-30 Minutes/Day (Sat/[place]): 15-30 Time/GCodes Time In: 900 Time Out: 934 Total Billed Treatment Time: 34 Total Billed Treatment 1 visit GT 14 min EX 20 min PATRICIA CHARLES PT Dec 28, 2016 10:42
--- NOTE | 2016-12-28 10:51 | Progress Note-Hospitalist ---
Progress Note HPI/CC on Admission CC: Medical management following left total knee arthroplasty uncomplicated by Dr Nick HPI: This is a 81yoWF patient of Dr Cleveland's that presents to [facility] following an uncomplicated left knee replacement per Dr Nick. Her Elastic Attacher Zigzag is Dr Good whom I am consulting for close monitoring. Pt is currently sleeping and the family is at the bedside and her daughter is an RN at [facility]. I reviewed her medical hx and home meds. Will monitor labs closely and check iron level. Progress Notes/Assess & Plan Date Seen 12/28/16 Admission Dx/Process Assessment: Left total knee arthroplasty POD # 0 HTN Cardiomyopathy non-ischemic type 30% EF on cardiac cath HLP PHTN OA Diagonsis/Assessment & Plan bridge attacher: RN requests reconciliation of home meds Patient Interview: Pt is awake and alert today. Pt states that PCP is Dr. Cleveland. Pt states that she feels improved today. Physical exam stable. Pt has been using IS. Pt has not eaten much today, but is drinking. Pt states that her leg was jerking last night, and she could feel her muscle tightening repeatedly, but this has resolved. No fever, vital signs stable, pleasant, improved Regular rate and rhythm, clear to auscultation bilaterally No edema Laboratory Tests 12/28/16 06:30 Assessment: Left total knee arthroplasty POD # 1 HTN Cardiomyopathy non-ischemic type 30% EF on cardiac cath HLP PHTN OA Post op anemia due to blood loss iron level is pending Plan: Cardiology consultation Minimize fluid to prevent overload Pain meds PT/OT BM regimen Check iron level along with basic labs daily Restart home meds DC fluids BM regimen Walker order written Scribed by Roger Brice under the direct supervision of Dr. Cortez. JIM CORTEZ DO Dec 28, 2016 10:51
[2016-12-28] MEDS: BENAZEPRIL 20 MG (LOTENSIN) TAB PO SCH (11:37)
[2016-12-28 11:44] VITALS: BP 117/65
[2016-12-28] MEDS: OMEGA 3 (FISH OIL) 1000 MG CAP PO SCH ×2 (12:00→17:00)
[2016-12-28] MEDS: ASCORBIC ACID (VIT C) 500 MG TABLET PO SCH (12:00)
[2016-12-28] MEDS ORDERED: MULTIVIT W/MINERALS TAB (THERAGRAN M) PO SCH (12:00)
[2016-12-28] MEDS: VITAMIN E 400 INTLU CAP PO SCH (12:00)
[2016-12-28] MEDS: VITAMIN D3 1,000 UNITS (CHOLECALCIFEROL) TABLET PO SCH (12:00)
--- NOTE | 2016-12-28 13:50 | Occupational Therapy Eval ---
OT Evaluation-General/PLF Medical Diagnosis Admission Date Dec 27, 2016 at 06:10 Medical Diagnosis: left TKA Onset Date: Dec 27, 2016 Therapy Diagnosis Therapy Diagnosis: decreased self care skills Height/Weight Height (Feet): 5 Height (Inches): 4.00 Weight (Pounds): 154 Weight (Ounces): 5.0 Precautions Precautions/Isolations: Fall Prevention, Standard Precautions Safety Interventions: None Weight Bear Status Weight Bearing Restriction: Weight Bearing/Tolerated Location Restriction: L LE Referral Physician: Hector Mcmillan Medical History Pertinent Medical History: HTN Additional Medical History CHF, right rotator cuff, trigger finger, cataract, cardiomyopathy Current History Pt s/p elective left TKA Reviewed History: Yes Social History Home: Single Level Current Living Status: Alone Entry Into Home: Stairs With Railing Steps Into Home: 2 ADL-Prior Level of Function ADL PLOF Comments Pt reports being independent with ADLs and mobility. Does not use any AD. DME/Equipment: Shower, Tub/Shower, Toilet/Riser DME/Equipment Comments Built in shower seat. Pt states she is having grab bars installed in the bathroom. Drive Self: Yes OT Current Status Subjective Pt in bed, agrees to treatment. Pt reports left LE pain, but does not rate. Mental Status/Objective Patient Orientation: Person, Place, Time, Situation Attachments: IV Current Hand Dominance: Right Upper Extremity ROM Grossly WFL Upper Extremity Coordination Intact Upper Extremity Sensation Pt reports occasional tingling in fingers Upper Extremity Strength Grossly functional ADL-Treatment ADL-Current Pt supine to sit with SBA. Pt participated in UE assessment while seated EOB. Pt educated on use of adaptive equipment for LE dressing. Pt doffed sock with SBA using dressing stick. Donned socks with verbal cues using sock aid. Pt scooted to HOB with SBA. Sit to supine with SBA. Pt in bed with needs met, CPM and polar pack in place after session. Functional [place] Measure 0=Not Assessed/NA 4=Minimal Assistance 1=Total Assistance 5=Supervision or Setup 2=Maximal Assistance 6=Modified [place] 3=Moderate Assistance 7=Complete IndependenceIRFPAI Quality Coding Scale 6 Independent with activity with or without an assistive device 5 Patient requires set up or clean up by helper. Patient completes activity by themselves 4 Supervision or touching assist (CGA). [place] provide cues , steadying assist 3 The helper provides less than half the effort to complete the activity 2 The helper provides more than half the effort to complete the activity 1 Dependent. The helper does all the effort to complete an activity 7 Patient refused to complete or attempt activity 9 The patient did not perform the activity before the current illness or injury 88 Not attempted due to Medical conditions or safety concerns Eating (FIM): 6 (Pt reports feeding self, managing packages and cutting food without assistance.) Lower Body Dressing (FIM): 5 (socks only with adaptive equipment) Education OT Patient Education: Modified ADL techniques, Rehab process Teaching Recipient: Patient Teaching Methods: Discussion Response to Teaching: Verbalize Understanding OT Short Term Goals Short Term Goals 1=Demonstrate adherence to instructed precautions during ADL tasks. 2=Patient will verbalize/demonstrate understanding of assistive devices/ modifications for ADL. 3=Patient will improve strength/tolerance for activity to enable patient to perform ADL's. OT Care Home Goals Care Home Goals Time Frame: Jan 04, 2017 Grooming(FIM): 6 Bathing(FIM): 5 Upper Body Dressing(FIM): 6 Lower Body Dressing(FIM): 5 Toileting(FIM): 6 Toilet/Commode Transfer(FIM): 6 1=Demonstrate adherence to instructed precautions during ADL tasks. 2=Patient will verbalize/demonstrate understanding of assistive devices/ modifications for ADL. 3=Patient will improve strength/tolerance for activity to enable patient to perform ADL's. OT Education/Plan Problem List/Assessment Assessment: Dependent Transfers, Impaired Self-Care Skills Pt to benefit from skilled OT intervention for ADL training, transfers, and adaptive equipment training to improve level of function and allow safe return home. Discharge Recommendations Plan/Recommendations: Continue POC Treatment Plan/Plan of Care Treatment,Training & Education: Yes Patient would benefit from OT for education, treatment and training to promote independence in ADL's, mobility, safety and/or upper extremity function for ADL' s. Plan of Care: ADL Retraining, Functional Mobility, UE Funct Exercise/Act Treatment Duration: Jan 04, 2017 # of days/week 5 Visits Per Week: 5 Agreement: Yes Rehab Potential: Good Time/GCodes Start Time: 10:41 Stop Time: 11:11 Total Time Billed (hr/min): 30 Billed Treatment Time 1 visit, EVL(15minutes), ADL(15minutes) FABI LIU OT Dec 28, 2016 13:50
[2016-12-28] MEDS: fentaNYL PCA 300 MCG/30 ML VIAL IV PRN (13:54)
--- NOTE | 2016-12-28 14:34 | Physical Therapy Daily Note ---
PT Daily Note-Current Subjective Patient reports increase c/o left knee pain secondary to "block" is wearing off. Patient has ANTHROPOLOGICAL LINGUIST, however, per RN, no pain pills have been ordered. Pain Numeric Pain Scale: 10-Worst Possible Pain Location: Left Pain Description: Ache, Acute Mental Status Patient Orientation: Normal For Age Attachments: IV ANTHROPOLOGICAL LINGUIST Transfers Functional [place] Measure 0=Not Assessed/NA 4=Minimal Assistance 1=Total Assistance 5=Supervision or Setup 2=Maximal Assistance 6=Modified [place] 3=Moderate Assistance 7=Complete IndependenceIRFPAI Quality Coding Scale 6 Independent with activity with or without an assistive device 5 Patient requires set up or clean up by helper. Patient completes activity by themselves 4 Supervision or touching assist (CGA). [place] provide cues , steadying assist 3 The helper provides less than half the effort to complete the activity 2 The helper provides more than half the effort to complete the activity 1 Dependent. The helper does all the effort to complete an activity 7 Patient refused to complete or attempt activity 9 The patient did not perform the activity before the current illness or injury 88 Not attempted due to Medical conditions or safety concerns Transfers (B, C, W/C) (FIM): 5 Scootin Rollin Supine to/from Sit: 5 Sit to/from Stand: 5 Weight Bearing Weight Bearing Restriction: Weight Bearing/Tolerated Location Restriction: L LE Gait Training Gait (FIM): 2 Distance (FIM): 1=202-53 ft Distance: 75' Gait Level of Assist: 4 Gait Persons Needed: 1 Gait Assistive Device: FWW extremely antalgic with step go gait sequence Exercises Supine Ex: Ankle pumps, Quad Set Supine Reps: 10 Seated Therapy Exercises: Long arc quads Seated Reps: 15 all exercises are AROM Assessment Patient declined CPM at this time. Polar pack in place. Patient is visually distressed and frustrated with pain control. PT consulted with RN and RN states that patient has the ANTHROPOLOGICAL LINGUIST only for pain control. PT to increase activity as tolerated by patient. PT Scientific Helper Goals Fdc Goals PT Scientific Helper Goals Time Frame: Jan 03, 2017 Transfers (B,C,W/C) (FIM): 5 Gait (FIM): 2 Distance: 50' Gait Level of Assist: 5 Gait Assistive Device: FWW PT Plan Treatment/Plan Treatment Plan: Continue Plan of Care Treatment Plan: Bed Mobility, Education, Functional Activity Winnie, Functional Strength, Gait, Safety, Therapeutic Exercise, Transfers Treatment Duration: Jan 03, 2017 Visits Per Week: 10-11 Minutes/Day (M-F): 15-30 Minutes/Day (Sat/[place]): 15-30 Time/GCodes Time In: 1340 Time Out: 1403 Total Billed Treatment Time: 23 Total Billed Treatment 1 visit GT 15 min EX 8 min PATRICIA CHARLES PT Dec 28, 2016 14:34
--- NOTE | 2016-12-28 14:37 | Anesthesia-General Post-Op ---
General Patient Condition Mental Status/LOC: Same as Preop Cardiovascular: Satisfactory Nausea/Vomiting: Absent Respiratory: Satisfactory Pain: Controlled Complications: Absent Post Op Complications Complications None Follow Up Care/Instructions Patient Instructions None needed. Anesthesia/Patient Condition Patient Condition Patient is doing well, no complaints, stable vital signs, no apparent adverse anesthesia problems. No complications reported per nursing. BELEN BAEZA CRNA Dec 28, 2016 14:37
[2016-12-28 16:15] VITALS: BP 138/66
[2016-12-28 19:10] VITALS: BP 120/67
[2016-12-28] MEDS ORDERED: LUTEIN PO SCH (21:00)
[2016-12-28] MEDS ORDERED: [UNRECOGNIZED DRUG - OTHER] PO SCH (21:00)
[2016-12-28] MEDS ORDERED: MULTIVITAMIN W MINERALS PO SCH (21:00)
[2016-12-29 00:28] VITALS: BP 129/70
[2016-12-29] MEDS: fentaNYL PCA 300 MCG/30 ML VIAL IV PRN (01:49)
[2016-12-29 04:20] VITALS: BP 121/68
[2016-12-29] MEDS: MULTIVIT W/MINERALS TAB (THERAGRAN M) PO SCH (06:15)
[2016-12-29] MEDS: OMEGA 3 (FISH OIL) 1000 MG CAP PO SCH ×3 (06:16→16:21)
[2016-12-29 06:59] LABS: BASOPHILS % (AUTO) 0 % (0-10); EOSINOPHILS % (AUTO) 0 % (0-10); LYMPHOCYTES # (AUTO) 1.4 X 10^3 (1.0-4.0); LYMPHOCYTES % (AUTO) 16 % (12-44); MEAN CORPUSCULAR HEMOGLOBIN 30 PG (25-34); MEAN CORPUSCULAR HGB CONC 33 G/DL (32-36); MEAN CORPUSCULAR VOLUME 91 FL (80-99); MONOCYTES # (AUTO) 1.2 X 10^3 (0.0-1.0); MONOCYTES % (AUTO) 13 % (0-12); NEUTROPHILS % (AUTO) 70 % (42-75); PLATELET COUNT 163 10^3/uL (130-400); RED BLOOD COUNT 2.99 10^6/uL (4.35-5.85); RED CELL DISTRIBUTION WIDTH 13.1 % (10.0-14.5); WHITE BLOOD COUNT 8.6 10^3/uL (4.3-11.0)
[2016-12-29 07:20] LABS: ALANINE AMINOTRANSFERASE 17 U/L (0-55); ALBUMIN 3.2 G/DL (3.2-4.5); ANION GAP 8 MMOL/L (5-14); ASPARTATE AMINO TRANSFERASE 29 U/L (5-34); BILIRUBIN,TOTAL 0.5 MG/DL (0.1-1.0); BLOOD UREA NITROGEN 9 MG/DL (7-18); BUN/CREATININE RATIO 15; CARBON DIOXIDE 23 MMOL/L (21-32); CHLORIDE 106 MMOL/L (98-107); CREATININE SERUM 0.61 MG/DL (0.60-1.30); GFR ESTIMATED > 60; GLUCOSE 108 MG/DL (70-105); POTASSIUM 3.9 MMOL/L (3.6-5.0); SODIUM 137 MMOL/L (135-145); TOTAL PROTEIN 5.6 G/DL (6.4-8.2)
[2016-12-29 08:15] VITALS: BP 139/67
[2016-12-29] MEDS ORDERED: fentaNYL INJECTION 100 MCG/2 ML AMP IVP PRN (08:15)
--- NOTE | 2016-12-29 08:15 | Progress Note-Standard ---
Standard Progress Note Progress Notes/Assess & Plan Progress/Assessment & Plan POD 2 Pt. reports no problems and has no complaints. She continues to report more pain in hip than knee. VSS, Tmax 99.8. H&H 8.9 and 27 Lt. knee incision well approximated with no warmth erythema or drainage noted. Bilat. calves soft and nontender. Intact PF, DF and EHL function. Negative Jaren's signs. A: Doing well S/P Lt. TKA P: Mobilize, PT, DVT prophylaxis. Hep loc IV Dressing changed today. Home tomorrow BELEN ESQUIVEL Dec 29, 2016 08:15
--- NOTE | 2016-12-29 08:40 | Occupational Ther Daily Note ---
OT Current Status-Daily Note Subjective Pt in bed, agrees to treatment. Pt reports 3/10 left LE pain. Mental Status/Objective Functional [place] Measure 0=Not Assessed/NA 4=Minimal Assistance 1=Total Assistance 5=Supervision or Setup 2=Maximal Assistance 6=Modified [place] 3=Moderate Assistance 7=Complete [place] ADL-Treatment Pt supine to sit with skilled cues for technique. Pt declined bathing and dressing this morning. Reviewed use of adaptive equipment for LE ADLs. Pt demonstrated ability to doff socks without assistance using dressing stick. Pt donned socks with verbal cues using sock aid. Education provided regarding ADLs and home safety. Pt states understanding and has no questions or concerns at this time. Pt states she will be discharged tomorrow and will have family nearby who will be available to assist if needed. Pt sitting EOB with needs met after session. OT Short Term Goals Short Term Goals 1=Demonstrate adherence to instructed precautions during ADL tasks. 2=Patient will verbalize/demonstrate understanding of assistive devices/ modifications for ADL. 3=Patient will improve strength/tolerance for activity to enable patient to perform ADL's. OT Fci Goals Service Delivery Analyst Goals Time Frame: Jan 04, 2017 Grooming(FIM): 6 Bathing(FIM): 5 Upper Body Dressing(FIM): 6 Lower Body Dressing(FIM): 5 Toileting(FIM): 6 Toilet/Commode Transfer(FIM): 6 1=Demonstrate adherence to instructed precautions during ADL tasks. 2=Patient will verbalize/demonstrate understanding of assistive devices/ modifications for ADL. 3=Patient will improve strength/tolerance for activity to enable patient to perform ADL's. OT Education/Plan Problem List/Assessment Pt to benefit from skilled OT intervention for ADL training, transfers, and adaptive equipment training to improve level of function and allow safe return home. Discharge Recommendations Plan/Recommendations: Continue POC Treatment Plan/Plan of Care Patient would benefit from OT for education, treatment and training to promote independence in ADL's, mobility, safety and/or upper extremity function for ADL' s. Plan of Care: ADL Retraining, Functional Mobility, UE Funct Exercise/Act Treatment Duration: Jan 04, 2017 Visits Per Week: 5 Agreement: Yes Rehab Potential: Good Time/GCodes Start Time: 08:15 Stop Time: 08:30 Total Time Billed (hr/min): 15 Billed Treatment Time 1 visit, ADL(15minutes) FABI LIU OT Dec 29, 2016 08:40
--- NOTE | 2016-12-29 08:57 | Physical Therapy Daily Note ---
PT Daily Note-Current Subjective Patient sitting EOB pre tx, just got through with OT, agrees to PT. Patient states she has pain of 3/10 in her left knee. She would like to continue to sit EOB post tx to eat her breakfast when she is done, she does not want to get into the recliner. Appearance Patient sitting EOB post tx with nurse call, phone, tray, all needs met. Mental Status Patient Orientation: Normal For Age Attachments: IV Transfers Functional [place] Measure 0=Not Assessed/NA 4=Minimal Assistance 1=Total Assistance 5=Supervision or Setup 2=Maximal Assistance 6=Modified [place] 3=Moderate Assistance 7=Complete IndependenceIRFPAI Quality Coding Scale 6 Independent with activity with or without an assistive device 5 Patient requires set up or clean up by helper. Patient completes activity by themselves 4 Supervision or touching assist (CGA). [place] provide cues , steadying assist 3 The helper provides less than half the effort to complete the activity 2 The helper provides more than half the effort to complete the activity 1 Dependent. The helper does all the effort to complete an activity 7 Patient refused to complete or attempt activity 9 The patient did not perform the activity before the current illness or injury 88 Not attempted due to Medical conditions or safety concerns Transfers (B, C, W/C) (FIM): 5 Sit to/from Stand: 5 cues for safety and hand placement Gait Training Gait (FIM): 2 Distance: 80' Gait Level of Assist: 4 (CGA) Gait Persons Needed: 1 Gait Assistive Device: FWW Patient ambulates very slowly, poor heel strike, very short steps, patient because a little nauseated with ambulation but no vomiting, flexed left knee. Exercises Seated Therapy Exercises: Ankle pumps, Long arc quads, Hamstring Curls Seated Reps: 10 Treatments transfers, ambulation, functional strengthening Assessment Current Status: Fair Progress improving endurance and ambulation PT Fdc Goals Fdc Goals PT Summer Law Clerk Goals Time Frame: Jan 03, 2017 Transfers (B,C,W/C) (FIM): 5 Gait (FIM): 2 Distance: 50' Gait Level of Assist: 5 Gait Assistive Device: FWW PT Plan Problem List Problem List: Activity Tolerance, Functional Strength, Safety, Balance, Gait, Transfer, Bed Mobility, ROM Treatment/Plan Treatment Plan: Continue Plan of Care Treatment Plan: Bed Mobility, Education, Functional Activity Winnie, Functional Strength, Gait, Safety, Therapeutic Exercise, Transfers Treatment Duration: Jan 03, 2017 Visits Per Week: 10-11 Minutes/Day (M-F): 15-30 Minutes/Day (Sat/[place]): 15-30 Safety Risks/Education Patient Education: Gait Training, Transfer Techniques, Correct Positioning, Safety Issues Teaching Recipient: Patient Teaching Methods: Demonstration, Discussion Response to Teaching: Reinforcement Needed Time/GCodes Time In: 830 Time Out: 850 Total Billed Treatment Time: 20 Total Billed Treatment 1 visit GT 20 min KENNEDY CHOWDHURY PT Dec 29, 2016 08:56
[2016-12-29] MEDS: MAGNESIUM OXIDE (MAG-OX)400 MG TAB PO SCH ×2 (09:00→19:52)
[2016-12-29] MEDS: ESTRADIOL 1 MG TAB (ESTRACE) PO SCH (09:00)
[2016-12-29] MEDS: ENOXAPARIN 30 MG/0.3 ML (LOVENOX) SYR SC SCH ×2 (09:10→19:52)
[2016-12-29] MEDS: amLODIPine 10 MG (NORVASC) TAB PO SCH (09:10)
[2016-12-29] MEDS: ASPIRIN E.C. 81 MG (ECOTRIN) TAB PO SCH (09:10)
[2016-12-29] MEDS: SENNA W/DOCUSATE (SENOKOT S) TABLET PO SCH ×2 (09:10→19:52)
[2016-12-29] MEDS: BENAZEPRIL 20 MG (LOTENSIN) TAB PO SCH (09:15)
--- NOTE | 2016-12-29 10:36 | Progress Note-Hospitalist ---
Progress Note HPI/CC on Admission CC: Medical management following left total knee arthroplasty uncomplicated by Dr Nick HPI: This is a 81yoWF patient of Dr Cleveland's that presents to [facility] following an uncomplicated left knee replacement per Dr Nick. Her Hospice Physician is Dr Good whom I am consulting for close monitoring. Pt is currently sleeping and the family is at the bedside and her daughter is an RN at [facility]. I reviewed her medical hx and home meds. Will monitor labs closely and check iron level. Progress Notes/Assess & Plan Date Seen 12/29/16 Admission Dx/Process Assessment: Left total knee arthroplasty POD # 0 HTN Cardiomyopathy non-ischemic type 30% EF on cardiac cath HLP PHTN OA Diagonsis/Assessment & Plan Patient doing much better and overall handling the pain Still on a [employer] WAF[employer] MARKER of fentanyl and transition to by mouth Ready for discharge tomorrow if her pain is controlled No BM yet and takes home laxatives Noted iron level is good and complete blood count shows mild postop anemia but that should rebound quickly No fever, vital signs stable, pleasant, improved Regular rate and rhythm, clear to auscultation bilaterally No edema Laboratory Tests 12/29/16 06:12 Assessment: Left total knee arthroplasty POD # 2 HTN Cardiomyopathy non-ischemic type 30% EF on cardiac cath HLP PHTN OA Post op anemia but nl iron level Plan: Cardiology consultation appreciated Minimize fluid to prevent overload Pain meds PT/OT BM regimen Restart home meds BM regimen Walker order written DC Sunday if ok with ortho JIM CORTEZ DO Dec 29, 2016 10:36
[2016-12-29] MEDS: ASCORBIC ACID (VIT C) 500 MG TABLET PO SCH (11:37)
[2016-12-29] MEDS: VITAMIN E 400 INTLU CAP PO SCH (11:38)
[2016-12-29] MEDS: VITAMIN D3 1,000 UNITS (CHOLECALCIFEROL) TABLET PO SCH (11:38)
[2016-12-29 12:12] VITALS: BP 130/77
[2016-12-29] MEDS: oxyCODONE/APAP 5/325MG (PERCOCET 5) TABLET PO PRN ×2 (12:30→21:09)
--- NOTE | 2016-12-29 12:43 | Cardiology Progress Note ---
Cardiology SOAP Progress Note Subjective: mild shortness of breath yesterday with exertion. Continues to have knee pain post knee surgery. Objective: I&O/Vital Signs Vital Sign - Last 12Hours 12/29/16 12/29/16 12/29/16 12/29/16 01:49 04:20 06:19 08:00 Temp 99.7 Pulse 80 Resp 18 18 18 18 B/P (MAP) 121/68 Pulse Ox 94 O2 Delivery Room Air 12/29/16 12/29/16 12/29/16 12/29/16 08:00 08:15 11:34 12:12 Temp 99.7 100.5 Pulse 83 80 Resp 19 18 20 B/P (MAP) 139/67 130/77 Pulse Ox 95 95 O2 Delivery Room Air Room Air Room Air 12/29/16 12:30 Temp 100.5 Intake and Output 12/29/16 00:00 Intake Total 2610 ml Output Total 950 ml Balance 1660 ml Weight (Pounds): 154 Weight (Ounces): 5.0 Weight (Calculated Kilograms): [id number] Constitutional: No appears stated age, No AAO x 3, No apparent distress, No PERRL, No well-developed, No well-nourished, No other Respiratory: No accessory muscle use, No respiratory distress, No chest tender , No chest expansion is symmetric, No chest is bilaterally symmetric, No lungs clear to percussion, No lungs clear to auscultation, No crackles, No rhonchi, No rales, No stridor, No wheezing, No pleural rub, No other Cardiovascular: No regular rate-rhythm, No irregularly irregular, No extra beats, No parasternal heave is noted, No JVD, No edema, No bradycardia, No tachycardia, No point of maximal impulse, No cardiac thrills are palpable, No S1 and S2, No gallop/S3, No gallop/S4, No diastolic murmur, No systolic murmur, No friction rub, No click, No other Gastrointestional: No tender, No soft, No round, No distended, No pulsatile mass, No organomegaly, No guarding, No rebound, No tenderness, No hernia, No mass, No audible bowel sounds, No abnormal bowel sounds, No abdominal bruits, No spleenomegaly, No other Extremities: other (knee surgery) Neurologic/Psychiatric: No optical laboratory mechanic II-XII nml as tested, No no motor/sensory deficits, No alert, No normal mood/affect, No oriented x 3, No abnormal cerebellar tests, No abnormal optical laboratory mechanic II-XII, No abnormal gait, No aphasia, No EOM palsy, No facial droop, No motor weakness, No sensory deficit, No depressed affect, No disoriented x 3, No other, No grossly intact, No power is 5/5 both on sides Skin: No normal color, No warm/dry, No cyanosis, No cool, No diaphoresis, No damp, No ecchymosis, No jaundice, No mottled, No pallor, No rash, No tattoos/ piercings, No ulcerations, No rash on exposed areas, No ulcerations on exposed areas, No other Results/Procedures: Labs Laboratory Tests 12/29/16 06:12: White Blood Count 8.6, Red Blood Count 2.99L, Hemoglobin 8.9L, Hematocrit 27L, Mean Corpuscular Volume 91, Mean Corpuscular Hemoglobin 30, Mean Corpuscular Hemoglobin Concent 33, Red Cell Distribution Width 13.1, Platelet Count 163, Mean Platelet Volume 10.0, Neutrophils (%) (Auto) 70, Lymphocytes (%) (Auto) 16 , Monocytes (%) (Auto) 13H, Eosinophils (%) (Auto) 0, Basophils (%) (Auto) 0, Neutrophils # (Auto) 6.0, Lymphocytes # (Auto) 1.4, Monocytes # (Auto) 1.2H, Eosinophils # (Auto) 0.0, Basophils # (Auto) 0.0, Sodium Level 137, Potassium Level 3.9, Chloride Level 106, Carbon Dioxide Level 23, Anion Gap 8, Blood Urea Nitrogen 9, Creatinine 0.61, Estimat Glomerular Filtration Rate > 60, BUN/ Creatinine Ratio 15, Glucose Level 108H, Calcium Level 9.0, Total Bilirubin 0.5 , Aspartate Amino Transf (AST/SGOT) 29, Alanine Aminotransferase (ALT/SGPT) 17, Alkaline Phosphatase 68, Total Protein 5.6L, Albumin 3.2 A/P: Assessment/Dx: Admission Diagnosis Congestive heart failure, chronic compensated left ventricular systolic dysfunction Hypertension Hyperlipidemia Mitral regurgitation Plan: Assessment/Plan S/P Left total knee athroplasty by Dr. Ruiz, POD #2. History of syncope, unknown etiology, no further syncopal episodes were reported, she was having some orthostatic dizziness, reported improvement. Unable to tolerate beta blockers.Continue to monitor. Congestive heart failure with chronic compensated left ventricular diastolic dysfunction, normal systolic function with ejection fraction 60 percent, hypertensive heart disease, moderate mitral regurgitation, moderate tricuspid regurgitation, moderate aortic regurgitation, pulmonary artery pressure of 35- 40 mmHg, last echocardiogram was done in February 2016. Continue to monitor. Hypertension,history of hypotension in the past. restart home medications and monitor Hyperlipidemia, last lipid profile was done in June 2016, total cholesterol 218 HDL 84 triglyceride 91, LDL 116. Continue current medications and continue to monitor. Cardiac catheterization was done in June 2010 showing no significant obstructive disease, ejection fraction at that time was 25-30 percent it has improved since then. Continue to monitor. Pulmonary hypertension with most recent PA pressure 35-40 mmHg, continue to monitor Chronic left bundle branch block Mild bilateral nonobstructive carotid artery stenosis. Continue to monitor. mild shortness of breath with exertion. normal oxygen saturation. already on DVT prophylaxis. Vilma MERCADO MD Dec 29, 2016 12:43
--- NOTE | 2016-12-29 13:25 | Physical Therapy Daily Note ---
PT Daily Note-Current Subjective Patient agrees to therapy. Pain Numeric Pain Scale: 8 Location: Left Location Body Site: Knee Pain Description: Acute Mental Status Patient Orientation: Normal For Age Attachments: Polar Pack Transfers Functional [place] Measure 0=Not Assessed/NA 4=Minimal Assistance 1=Total Assistance 5=Supervision or Setup 2=Maximal Assistance 6=Modified [place] 3=Moderate Assistance 7=Complete IndependenceIRFPAI Quality Coding Scale 6 Independent with activity with or without an assistive device 5 Patient requires set up or clean up by helper. Patient completes activity by themselves 4 Supervision or touching assist (CGA). [place] provide cues , steadying assist 3 The helper provides less than half the effort to complete the activity 2 The helper provides more than half the effort to complete the activity 1 Dependent. The helper does all the effort to complete an activity 7 Patient refused to complete or attempt activity 9 The patient did not perform the activity before the current illness or injury 88 Not attempted due to Medical conditions or safety concerns Transfers (B, C, W/C) (FIM): 6 Scootin Weight Bearing Weight Bearing Restriction: Weight Bearing/Tolerated Location Restriction: L LE Exercises Supine Ex: Ankle pumps, Quad Set, Heel Slides, Straight leg raise, Hip abd/add Supine Reps: 15 (2 sets) Treatments CPM 0-80 degrees with polar pack in place Assessment Patient tolerated treatment and declined OOB activity at this time due to extreme fatigue. PT Longterm Goals Longterm Goals PT Treating And Pumping Supervisor Goals Time Frame: Jan 03, 2017 Transfers (B,C,W/C) (FIM): 5 Gait (FIM): 2 Distance: 50' Gait Level of Assist: 5 Gait Assistive Device: FWW PT Plan Treatment/Plan Treatment Plan: Continue Plan of Care Treatment Plan: Bed Mobility, Education, Functional Activity Winnie, Functional Strength, Gait, Safety, Therapeutic Exercise, Transfers Treatment Duration: Jan 03, 2017 Visits Per Week: 10-11 Minutes/Day (M-F): 15-30 Minutes/Day (Sat/[place]): 15-30 Time/GCodes Time In: 1245 Time Out: 1315 Total Billed Treatment Time: 30 Total Billed Treatment 1 visit EX x 2 30 min PATRICIA CHARLES PT Dec 29, 2016 13:25
[2016-12-29 15:55] VITALS: BP 130/67
[2016-12-29 19:50] VITALS: BP 125/62
[2016-12-30] VITALS: BP 126/72
[2016-12-30] MEDS: oxyCODONE/APAP 5/325MG (PERCOCET 5) TABLET PO PRN ×3 (01:46→11:51)
[2016-12-30 06:20] LABS: BASOPHILS % (AUTO) 0 % (0-10); EOSINOPHILS # (AUTO) 0.1 10^3/uL (0.0-0.3); EOSINOPHILS % (AUTO) 1 % (0-10); LYMPHOCYTES # (AUTO) 1.8 X 10^3 (1.0-4.0); LYMPHOCYTES % (AUTO) 22 % (12-44); MEAN CORPUSCULAR HEMOGLOBIN 30 PG (25-34); MEAN CORPUSCULAR HGB CONC 33 G/DL (32-36); MEAN CORPUSCULAR VOLUME 91 FL (80-99); MEAN PLATELET VOLUME 9.1 FL (7.4-10.4); MONOCYTES # (AUTO) 0.8 X 10^3 (0.0-1.0); MONOCYTES % (AUTO) 10 % (0-12); NEUTROPHILS # (AUTO) 5.6 X 10^3 (1.8-7.8); NEUTROPHILS % (AUTO) 67 % (42-75); PLATELET COUNT 177 10^3/uL (130-400); RED BLOOD COUNT 3.02 10^6/uL (4.35-5.85); WHITE BLOOD COUNT 8.4 10^3/uL (4.3-11.0)
[2016-12-30 06:37] LABS: ALANINE AMINOTRANSFERASE 35 U/L (0-55); ALBUMIN 3.2 G/DL (3.2-4.5); ANION GAP 7 MMOL/L (5-14); ASPARTATE AMINO TRANSFERASE 70 U/L (5-34); BILIRUBIN,TOTAL 0.9 MG/DL (0.1-1.0); BLOOD UREA NITROGEN 8 MG/DL (7-18); BUN/CREATININE RATIO 14; CALCIUM 9.3 MG/DL (8.5-10.1); CARBON DIOXIDE 24 MMOL/L (21-32); CHLORIDE 107 MMOL/L (98-107); CREATININE SERUM 0.59 MG/DL (0.60-1.30); GFR ESTIMATED > 60; GLUCOSE 105 MG/DL (70-105); POTASSIUM 3.6 MMOL/L (3.6-5.0); SODIUM 138 MMOL/L (135-145); TOTAL PROTEIN 5.8 G/DL (6.4-8.2)
[2016-12-30] MEDS: OMEGA 3 (FISH OIL) 1000 MG CAP PO SCH ×2 (07:00→12:00)
[2016-12-30] MEDS: ENOXAPARIN 30 MG/0.3 ML (LOVENOX) SYR SC SCH (07:57)
[2016-12-30 08:00] VITALS: BP 135/64
[2016-12-30] MEDS: BENAZEPRIL 20 MG (LOTENSIN) TAB PO SCH (08:05)
[2016-12-30] MEDS: ASPIRIN E.C. 81 MG (ECOTRIN) TAB PO SCH (08:05)
[2016-12-30] MEDS: SENNA W/DOCUSATE (SENOKOT S) TABLET PO SCH (08:05)
[2016-12-30] MEDS: amLODIPine 10 MG (NORVASC) TAB PO SCH (08:05)
[2016-12-30] MEDS: ESTRADIOL 1 MG TAB (ESTRACE) PO SCH (08:06)
--- NOTE | 2016-12-30 09:59 | Progress Note-Standard ---
Standard Progress Note Progress Notes/Assess & Plan Progress/Assessment & Plan POD 3 Pt. reports no problems and has no complaints. She continues to report more pain in hip than knee. VSS, Tmax 100.4 H&H 9.1 and 28 Lt. knee incision well approximated with no warmth erythema or drainage noted. Bilat. calves soft and nontender. Intact PF, DF and EHL function. Negative Jaren's signs. Able to SLR and flex to 90 degrees A: Doing well S/P Lt. TKA P: Mobilize, PT, DVT prophylaxis. Dressing changed today. Home today Percocet Rx and PT Rx on chart Home PT and linda out at 2 weeks postop BELEN ESQUIVEL Dec 30, 2016 09:59
--- NOTE | 2016-12-30 11:21 | Physical Therapy Daily Note ---
PT Daily Note-Current Subjective Pt reports that she has received a walker to take home. She is hopeful to discharge to home today with help of a friend. Mental Status Patient Orientation: Normal For Age Transfers Functional [place] Measure 0=Not Assessed/NA 4=Minimal Assistance 1=Total Assistance 5=Supervision or Setup 2=Maximal Assistance 6=Modified [place] 3=Moderate Assistance 7=Complete IndependenceIRFPAI Quality Coding Scale 6 Independent with activity with or without an assistive device 5 Patient requires set up or clean up by helper. Patient completes activity by themselves 4 Supervision or touching assist (CGA). [place] provide cues , steadying assist 3 The helper provides less than half the effort to complete the activity 2 The helper provides more than half the effort to complete the activity 1 Dependent. The helper does all the effort to complete an activity 7 Patient refused to complete or attempt activity 9 The patient did not perform the activity before the current illness or injury 88 Not attempted due to Medical conditions or safety concerns Transfers (B, C, W/C) (FIM): 5 Scootin Supine to/from Sit: 5 Sit to/from Stand: 5 Bed to/from Chair: 5 supervision for balance and verbal cues for safety Gait Training Gait (FIM): 2 Distance (FIM): 6=390-38 ft Distance: 100 Gait Level of Assist: 5 Gait Persons Needed: 1 Gait Assistive Device: FWW Ambulates with a step to gait pattern. She is steady with a FWW on level surfaces. Stair Training Stair Training: Handrails/: 1 handrail, uses walker Stairs (FIM): 2 Stairs: Pattern: Step to Level of Assist: 4 Patient was educated on step sequence. She was min assist to ascend/descend one step. Patient practiced using a FWW and using a single rail on the (R) Exercises Supine Ex: LE Protocol Supine Reps: 10 ROM exercise for (L) LE Assessment Current Status: Good Progress Recommend supervision for this patient if she is to ambulate on uneven surfaces and for stair climbing. PT Chief Radiologic Technologist Goals Chief Radiologic Technologist Goals PT Chief Radiologic Technologist Goals Time Frame: Jan 03, 2017 Transfers (B,C,W/C) (FIM): 5 Gait (FIM): 2 Distance: 50' Gait Level of Assist: 5 Gait Assistive Device: FWW PT Plan Problem List Problem List: Functional Strength, Safety, ROM Treatment/Plan Treatment Plan: Continue Plan of Care Treatment Plan: Bed Mobility, Education, Functional Activity Winnie, Functional Strength, Gait, Safety, Therapeutic Exercise, Transfers Treatment Duration: Jan 03, 2017 Visits Per Week: 10-11 Minutes/Day (M-F): 15-30 Minutes/Day (Sat/[place]): 15-30 Safety Risks/Education Patient Education: Gait Training, Safety Issues Teaching Recipient: Patient Teaching Methods: Demonstration, Discussion Discharge Recommendations Therapy D/C Recommendations: Occupational Therapy Home Care, Physical Therapy Home Care Time/GCodes Time In: 0800 Time Out: 0820 Total Billed Treatment Time: 20 Total Billed Treatment visit, gait 15 min, ex 5 min SHANEL PARK PT Dec 30, 2016 11:21
[2016-12-30] MEDS: VITAMIN E 400 INTLU CAP PO SCH (12:00)
[2016-12-30] MEDS: ASCORBIC ACID (VIT C) 500 MG TABLET PO SCH (12:00)
[2016-12-30] MEDS: VITAMIN D3 1,000 UNITS (CHOLECALCIFEROL) TABLET PO SCH (12:00)
[2016-12-30] MEDS ORDERED: MULTIVIT W/MINERALS TAB (THERAGRAN M) PO SCH (12:00)
[2016-12-30 12:20] VITALS: BP 135/64
--- NOTE | 2017-01-01 08:02 | DISCHARGE SUMMARY ---
DATE OF ADMISSION: 12/27/2016 DATE OF DISCHARGE: 12/30/2016 DIAGNOSES: 1. Left knee primary osteoarthritis. 2. History congestive failure. 3. Hypertension. PROCEDURE: Left total knee arthroplasty. SUMMARY: The patient is a 81-year-old female who was admitted the day of a left total knee arthroplasty, which she underwent without complications. Postoperatively, she did well. At time of discharge, her hematocrit was 28. Her wound was clean and dry. She had no calf tenderness and a negative Homans sign. She could perform a straight leg raise and had active flexion to 90 degrees. She was tolerating her diet well and tolerating pain with oral pain medication. CONDITION AT DISCHARGE: Good. DISCHARGE DIET: Regular. FOLLOW-UP: In 3 weeks. Home physical therapy has been arranged. DISCHARGE MEDICATIONS: 1. Home medications. 2. Percocet. 3. Aspirin. ACTIVITIES: Weight-bearing as tolerated with a walker. Job ID: [id number] Dictated Date: 12/30/2016 12:16:36 Multimedia Developer Date: 01/01/2017 07:58:39/[email or web address]
== END 2016-12-30 12:00 | disposition home health service (06) | DRG 470 ==
LOC: 4TH 06:10 → SURG 06:11 → 4TH 10:10 → ENPENDDIS 12-30 11:00
PROVIDERS: ADMIT Orthopaedic Surgery; ATTEND Orthopaedic Surgery
PROC: 0SRD0J9 Replacement of Left Knee Joint with Synthetic Substitute, Cemented, Open Approach (ICD-10-PCS; principal; 2016-12-27 07:25)
DX: M17.12 Unilateral primary osteoarthritis, left knee (principal); I11.0 Hypertensive heart disease with heart failure; I50.32 Chronic diastolic (congestive) heart failure; I42.9 Cardiomyopathy, unspecified; D62 Acute posthemorrhagic anemia; I25.10 Atherosclerotic heart disease of native coronary artery without angina pectoris; I08.3 Combined rheumatic disorders of mitral, aortic and tricuspid valves; I27.2 Other secondary pulmonary hypertension; I44.7 Left bundle-branch block, unspecified; J30.2 Other seasonal allergic rhinitis; N81.10 Cystocele, unspecified; E78.5 Hyperlipidemia, unspecified; I65.23 Occlusion and stenosis of bilateral carotid arteries; M19.90 Unspecified osteoarthritis, unspecified site; H35.30 Unspecified macular degeneration; Z87.891 Personal history of nicotine dependence
CPT/HCPCS: 36415; 73560; 80053; 83540; 85025

== ENCOUNTER 2017-02-16 12:56 | Outpatient (RCR) | payer MEDICARE ==
[~2017-02-16 12:56] MED LIST changes: +OXYC-197 PO
== END 2017-02-16 17:04 | disposition home or self-care (01) ==
PROVIDERS: ATTEND Orthopaedic Surgery
DX: Z47.1 Aftercare following joint replacement surgery (principal); Z96.652 Presence of left artificial knee joint

== ENCOUNTER → 2017-07-19 | Outpatient (CLI) | payer MEDICARE ==
--- NOTE | 2017-07-19 20:18 | Diagnostic Imaging Report ---
Bilateral diagnostic mammogram with tomography evaluation. The current study was also evaluated with a Computer Aided Detection (CAD) system. INDICATION: Asymmetry seen in the right breast on the prior exams. COMPARISON: 07/05/2016. FINDINGS: The breasts are composed of scattered fibroglandular densities. There is no mass, architectural distortion, or suspicious cluster of calcification. The previously seen asymmetries in the breast appear less prominent suggestive of benign etiology. No adverse development. IMPRESSION: No significant change. ACR BI-RADS Category 2: Benign findings. Result letter will be mailed to the patient. Note: At least 10% of breast cancer is not imaged by mammography. Dictated by: Dictated on workstation # [id number]
== END ==
LOC: RAD 08:06
PROVIDERS: ATTEND Family Medicine
DX: R92.8 Other abnormal and inconclusive findings on diagnostic imaging of breast (principal)
CPT/HCPCS: 77066

== ENCOUNTER → 2017-10-19 | Outpatient (CLI) | payer MEDICARE | LOC: CARD 09:32 | PROVIDERS: ATTEND Internal Medicine Cardiovascular Disease | DX: I11.0 Hypertensive heart disease with heart failure (principal); I50.32 Chronic diastolic (congestive) heart failure; R06.00 Dyspnea, unspecified; E78.2 Mixed hyperlipidemia; R00.2 Palpitations | CPT/HCPCS: 93306 ==

== ENCOUNTER → 2018-08-06 | Outpatient (CLI) | payer MEDICARE ==
[~2018-08-06] MED LIST changes: -AMLO10TA2 PO; +AMLO10TA6 PO; +BENA40TA5 PO; -OXYC-197 PO; +OXYC1TAB87 PO; -VALS80TA30 PO; +VALS80TA31 PO
--- NOTE | 2018-08-07 20:37 | Diagnostic Imaging Report ---
INDICATION: Screening. EXAMINATION: Digital mammogram bilateral screening with 3-D tomosynthesis. The current study was also evaluated with a Computer Aided Detection (CAD) system. This study was compared to the prior exams of 07/19/2017, 06/28/2016, and 04/30/2015. At this time, there are no current complaints. FINDINGS: There are scattered fibroglandular densities in both breasts which could obscure a lesion. Overall, there does not appear to have been any significant change when compared to the prior exam. No primary or secondary sign of malignancy is noted. 3D tomographic images fail to show any sign of malignancy. IMPRESSION: There is no radiographic evidence for malignancy. ACR BI-RADS Category 1: Negative. Result letter will be mailed to the patient. Note: At least 10% of breast cancer is not imaged by mammography. Dictated on workstation # [id number]
== END ==
LOC: RAD 08:59
PROVIDERS: ATTEND Family Medicine
DX: Z12.31 Encounter for screening mammogram for malignant neoplasm of breast (principal)
CPT/HCPCS: 77067

== ENCOUNTER → 2019-04-18 | Outpatient (CLI) | payer MEDICARE ==
[~2019-04-18] MED LIST changes: -AMLO10TA6 PO; +AMLO10TA7 PO; -CA C1TAB80 PO; +VIACTIV SOFT C1 EAC1 PO
== END ==
LOC: CARD 08:41
PROVIDERS: ATTEND Internal Medicine Cardiovascular Disease
DX: I08.3 Combined rheumatic disorders of mitral, aortic and tricuspid valves (principal); I11.0 Hypertensive heart disease with heart failure; I50.9 Heart failure, unspecified; I65.23 Occlusion and stenosis of bilateral carotid arteries; E78.2 Mixed hyperlipidemia
CPT/HCPCS: 93306

== ENCOUNTER → 2019-04-23 | Outpatient (CLI) | payer MEDICARE ==
[~2019-04-23] VITALS: Ht 162.6 cm; Wt 62.1 kg
[~2019-04-23] MED LIST changes: +CATHETER FLUSH 10 ML SYR IV PRN; +REGADENOSON 0.4 MG/5 ML SYR (LEXISCAN) IV ONE
[2019-04-23 09:27] VITALS: BP 111/67
[2019-04-23 09:31] VITALS: BP 128/61
--- NOTE | 2019-04-24 00:10 | STRESS TEST ---
DATE OF SERVICE: 04/23/2019 LEXISCAN MYOVIEW STRESS TEST REPORT REFERRING PHYSICIAN: Dr. Mp Nicholson. Baseline heart rate is 58, baseline blood pressure 111/67. Baseline EKG is sinus rhythm with left bundle-branch block. In summary, the patient was injected with 10.92 mCi of technetium-99 Myoview and the resting images were obtained. Then, the patient received 0.4 mg of Lexiscan followed by 29.3 mCi of technetium-99 Myoview. Throughout the test, there were no EKG changes. The resting and stress images were reviewed and compared in the short axis, horizontal long axis, and vertical long axis views. Review of the images showed breast attenuation with no significant ischemia or infarction. SSS is 2, SDS 2, TID value 0.97. On the gated images, the left ventricle appeared to be in normal size with mild diffuse left ventricular hypokinesia, calculated ejection fraction 43%. CONCLUSION: 1. The patient tolerated Lexiscan well. 2. Breast attenuation with no significant ischemia or infarction on SPECT images. 3. Normal left ventricular size with diffuse left ventricular hypokinesia, calculated ejection fraction 43%. Job ID: [id number] DocumentID: [id number] Dictated Date: 04/23/2019 19:46:11 Displayer Merchandise Date: 04/24/2019 00:09:43 Dictated By: ANNABEL PURI MD
== END ==
LOC: CARD 07:34
PROVIDERS: ATTEND Internal Medicine Cardiovascular Disease
DX: I11.0 Hypertensive heart disease with heart failure (principal); I50.9 Heart failure, unspecified; I65.23 Occlusion and stenosis of bilateral carotid arteries; E78.2 Mixed hyperlipidemia
CPT/HCPCS: 78452; 93017

== ENCOUNTER → 2019-07-16 | Outpatient (CLI) | payer MEDICARE ==
[~2019-07-16] MED LIST changes: +ASPI-999 PO; +CALC-308 PO; -CATHETER FLUSH 10 ML SYR IV PRN; +CHOL10007 PO; +LUTE1CAP6 PO; +MAGN250T13 PO; +MULT-166 PO; +OXYC-471 PO; -REGADENOSON 0.4 MG/5 ML SYR (LEXISCAN) IV ONE; +VITA400C60 PO
--- NOTE | 2019-07-16 10:30 | Diagnostic Imaging Report ---
MRI RT UPPER EXT JOINT W/O TECHNIQUE: Multiplanar, multisequence MR imaging of the right shoulder was performed without contrast. COMPARISON: Right shoulder MRI from 02/15/2011 INDICATION: Persistent right shoulder pain. FINDINGS: Rotator cuff: Prior repair of the anterior supraspinatus has been performed with a suture anchor present in the anterior greater tuberosity. There is recurrent full-thickness and complete tear of the supraspinatus with torn fibers retracted to the glenohumeral joint. Infraspinatus is intact with mild tendinopathy. Teres minor is normal. Subscapularis is completely torn with the fibers retracted level of the glenohumeral joint as well. Mild fatty atrophy of the supraspinatus and subscapularis is present. Glenoid labrum: There is likely degenerative tearing or surgical debridement of the superior labrum. Long head of biceps: The long head of the biceps is absent and may be due to tearing versus tenotomy. Bones and cartilage: Superior subluxation of the humeral head due to superior rotator cuff tear. Multifocal partial thickness chondromalacia throughout the glenohumeral joint. Mild hypertrophic degenerative arthritis of the acromioclavicular joint. Soft tissues: Large glenohumeral joint effusion is present with degenerative synovitis seen. No MRI findings to suggest adhesive capsulitis. Direct communication of the subacromial and subdeltoid space with the glenohumeral via the full-thickness rotator cuff tear is present. IMPRESSION: 1. Recurrent complete tears of the supraspinatus and subscapularis. Torn fibers are retracted to the level the glenohumeral joint, and there is mild to moderate muscle belly atrophy. 2. Long head of biceps is either completely torn or has undergone tenotomy. 3. Moderate glenohumeral degenerative arthritis due to rotator cuff tear arthropathy. Dictated by: Dictated on workstation # [id number]
== END ==
LOC: RAD 07:40
PROVIDERS: ATTEND Orthopaedic Surgery
DX: M75.121 Complete rotator cuff tear or rupture of right shoulder, not specified as traumatic (principal); M19.011 Primary osteoarthritis, right shoulder
CPT/HCPCS: 73221

== ENCOUNTER 2019-08-08 09:56 | Outpatient (CLI) | payer MEDICARE ==
[~2019-08-08] VITALS: Ht 162 cm; Wt 64.0 kg
[~2019-08-08 09:56] MED LIST changes: -ASPI-999 PO; -CALC-308 PO; -CHOL10007 PO; -LUTE1CAP6 PO; -MAGN250T13 PO; -MULT-166 PO; -OXYC-471 PO; -VITA400C60 PO
[2019-08-08] MEDS ORDERED: LUTE1CAP6 PO (10:14)
[2019-08-08] MEDS ORDERED: ASPI-999 PO (10:14)
[2019-08-08] MEDS ORDERED: MULT-166 PO (10:14)
[2019-08-08] MEDS ORDERED: MAGN250T13 PO (10:14)
[2019-08-08] MEDS ORDERED: CALC-308 PO (10:14)
[2019-08-08] MEDS ORDERED: CHOL10007 PO (10:14)
[2019-08-08] MEDS ORDERED: VITA400C60 PO (10:14)
[2019-08-08 10:19] VITALS: BP 110/63
== END 2019-08-08 10:29 | disposition home or self-care (01) ==
LOC: PREOP 09:56
PROVIDERS: ATTEND Orthopaedic Surgery
DX: Z01.818 Encounter for other preprocedural examination (principal)
CPT/HCPCS: 87081

== ENCOUNTER 2019-08-20 07:30 | Day surgery (SDC) | payer MEDICARE ==
--- NOTE | 2019-08-07 12:45 | HISTORY AND PHYSICAL ---
DATE OF SERVICE: ADMISSION HISTORY AND PHYSICAL This will be for outpatient surgery on 08/20/2019 for right shoulder rotator cuff repair. HISTORY OF PRESENT ILLNESS: The patient is an 83-year-old right hand dominant female who previously underwent right rotator cuff repair. She began to experience pain in her shoulder after pulling on a hose in the spring. She has had progressive loss of motion and loss of strength. An MRI reveals a full thickness retracted rotator cuff tear. Due to functional impairment and failure to improve with conservative measures, the patient elected to proceed with surgical intervention. REVIEW OF SYSTEMS: No chest pain, no shortness of breath, no dysuria. PAST MEDICAL HISTORY: Hypertension, congestive heart disease, macular degeneration. PAST SURGICAL HISTORY: Cholecystectomy, hysterectomy, trigger finger, cataracts, right rotator cuff, left total knee arthroplasty. FAMILY HISTORY: Noncontributory. SOCIAL HISTORY: The patient denies alcohol, tobacco use. PRIMARY CARE PROVIDER: Dr. Nicholson. CEMENT CAR DUMPER: Renee Good MD MEDICATIONS: Caduet, benazepril, estradiol, aspirin, lutein, vitamins, calcium. ALLERGIES: MORPHINE. PHYSICAL EXAMINATION: GENERAL: The patient is well developed, well nourished, in no acute distress. HEENT: Normocephalic, atraumatic. Pupils are equal, round and reactive to light. Oropharynx is clear. NECK: Supple, no lymphadenopathy. LUNGS: Clear to auscultation bilaterally. HEART: Regular rate and rhythm. ABDOMEN: Soft, nontender, nondistended. EXTREMITIES: Right shoulder demonstrates active forward elevation of 140 degrees, passive of 180. She has weakness with abduction and external rotation with positive drop arm. She has active external rotation 90 degrees and internal rotation is to her lower lumbar spine. She has weakness with abduction and external rotation with positive Neer's and positive Hawkin sign. IMPRESSION: Right rotator cuff tear. PLAN: Right shoulder arthroscopy with open rotator cuff repair. Risks, benefits, options, ramifications and recovery were discussed at length with the patient. She understands and wishes to proceed. Job ID: [id number] DocumentID: [id number] Dictated Date: 08/07/2019 12:24:31 Press Shop Supervisor Date: 08/07/2019 12:44:42 Dictated By: MATA HART MD
[2019-08-20] VITALS (13 sets, daily range): BP systolic 122–138; BP diastolic 53–69
[~2019-08-20] VITALS: Ht 162 cm; Wt 64.0 kg
[~2019-08-20 07:30] MED LIST changes: +ASPI-999 PO; +CALC-308 PO; +CHOL10007 PO; +LUTE1CAP6 PO; +MAGN250T13 PO; +MULT-166 PO; +VITA400C60 PO; +oxyCODONE/APAP 5/325MG (PERCOCET 5) TABLET PO PRN
[2019-08-20] MEDS ORDERED: LIDOCAINE PF 2% 5 ML (XYLOCAINE) VIAL ONE ×2 (07:36→08:48)
[2019-08-20] MEDS ORDERED: BUPIVACAINE 0.5% 30 ML (SENSORCAINE) VIAL ONE (07:36)
[2019-08-20] MEDS ORDERED: ROCURONIUM 10 MG/ML 5 ML SYRINGE IV ONE ×2 (07:36→09:24)
[2019-08-20] MEDS ORDERED: SEVOFLURANE (ULTANE) 15 ML INHAL SOLN ONE ×4 (07:36→09:25)
[2019-08-20] MEDS ORDERED: ONDANSETRON 4 MG/2 ML (SDV) Z0FRAN ONE ×3 (07:36→09:44)
[2019-08-20] MEDS ORDERED: MIDAZOLAM 2 MG/2 ML (VERSED) VIAL ONE (07:37)
[2019-08-20] MEDS ORDERED: fentaNYL INJECTION 100 MCG/2 ML AMP ONE ×2 (07:37→09:44)
--- NOTE | 2019-08-20 07:40 | Progress Note-Pre Operative ---
Pre-Operative Progress Note H&P Reviewed The H&P was reviewed, patient examined and no changes noted. Date Seen by Provider: Aug 20, 2019 Time Seen by Provider: 07:35 Date H&P Reviewed: Aug 20, 2019 Time H&P Reviewed: 07:11 Pre-Operative Diagnosis: right rotator cuff tear MATA HART MD Aug 20, 2019 07:40 POS
[2019-08-20] MEDS ORDERED: morphine PF (DURAMORPH) 10 MG/10 ML AMP ONE (07:41)
[2019-08-20] MEDS ORDERED: BUPIVACAINE 0.25% 30 ML (SENSORCAINE) VIAL ONE (07:41)
--- NOTE | 2019-08-20 07:41 | Progress Note-Post Operative ---
Post-Operative Progess Note Surgeon (s)/Automatic Folder Seamer (s) Surgeon MTAA HART MD Automatic Folder Seamer: Hector Mcmillan Pre-Operative Diagnosis right rotator cuff tear Post-Operative Diagnosis right rotator cuff tear and labral tear Procedure & Operative Findings Date of Procedure 08/20/19 Procedure Performed/Findings right shoulder arthroscopic labral debridement and open rotator cuff repair Anesthesia Type GETA plus interscalene Estimated Blood Loss Estimated blood loss (mL): minimal Specimens/Packing Specimens Removed none Packing: none MATA HART MD Aug 20, 2019 07:41 POS
[2019-08-20] MEDS: LACTATED RINGERS 1,000 ML IV PRN ×2 (07:47→09:18)
[2019-08-20] MEDS ORDERED: WATER (STERILE) FOR INJECTION 10 ML ONE (08:00)
[2019-08-20] MEDS ORDERED: ceFAZolin INJECTION 1,000 MG in WATER (STERILE) FOR INJECTION 10 ML IV ONE (08:00)
[2019-08-20] MEDS ORDERED: ceFAZolin INJECTION 1,000 MG ONE (08:00)
--- NOTE | 2019-08-20 08:21 | Anesthesia-Procedure Note ---
Procedures/Interventions Procedure Start/Stop/Diagnosis Date of Procedure: Aug 20, 2019 Start Time: 08:00 Stop Time: 08:15 Additional Procedures Procedures interscalene block right side per surgeon request post op pain control. 30cc .25% marcaine injected after loss of nerve stimulation at .6 ma. 1.5 mg versed given for sedation. patient tolerated procedure well. BELEN BAEZA CRNA Aug 20, 2019 08:21 POS
[2019-08-20] MEDS ORDERED: proPOfol 200 MG/20 ML (DIPRIVAN) VIAL IV ONE (08:48)
[2019-08-20] MEDS ORDERED: DEXAMETHASONE 10 MG/ML (DECADRON) 1 ML VIAL ONE (08:50)
[2019-08-20] MEDS ORDERED: NEOSTIGMINE 3 MG/3 ML VIAL ONE (09:01)
[2019-08-20] MEDS ORDERED: GLYCOPYRROLATE 0.2 MG/ML (ROBINUL) 2 ML VIAL ONE (09:01)
[2019-08-20] MEDS ORDERED: fentaNYL INJECTION 100 MCG/2 ML AMP IVP ONE (09:30)
[2019-08-20] MEDS ORDERED: ONDANSETRON 4 MG/2 ML (SDV) Z0FRAN IVP PRN (09:30)
[2019-08-20] MEDS ORDERED: OXYC-471 PO (11:34)
--- NOTE | 2019-08-20 14:08 | OPERATIVE REPORT ---
DATE OF SERVICE: 08/20/2019 PREOPERATIVE DIAGNOSIS: Right shoulder rotator cuff tear. POSTOPERATIVE DIAGNOSES: 1. Right shoulder rotator cuff tear. 2. Right shoulder labral tear. PROCEDURES PERFORMED: 1. Right shoulder open rotator cuff repair. 3. Right shoulder arthroscopic labral debridement. SURGEON: Tito Hart MD DIRECTOR HUMAN SERVICES: KOBE Gaston, who assisted throughout the procedure and closed the incisions. ANESTHESIA: General endotracheal plus interscalene nerve block as per my request for postoperative pain management by Onel Palacios CRNA. ESTIMATED BLOOD LOSS: Minimal. DRAINS: None. COMPLICATIONS: None. POSTOPERATIVE PLAN: Passive range of motion and sling wear for 4 weeks. The patient was transferred to the recovery room awake and in stable condition. STATEMENT OF MEDICAL NECESSITY: The patient is an 83-year-old female who previously underwent a right rotator cuff repair. In the spring, she began to experience weakness and pain after a lifting incident and since then has progressed to the point where she has difficulty with raising her arm. An MRI confirmed a full thickness retracted rotator cuff tear. Due to functional impairment and failure to improve with conservative measures, the patient elected to proceed with surgical intervention. DESCRIPTION OF PROCEDURE: After risks and benefits of procedure were discussed and questions were answered, an informed consent was signed and placed on chart. The operative site was confirmed in the preoperative holding area initialed by the surgeon. The patient was then transferred to the operating room. After adequate levels of regional plus general endotracheal anesthetic were obtained, a timeout was called, confirming the operative site. Examination under anesthesia was performed for the right shoulder, which demonstrated forward elevation of 170 degrees, external rotation 85 degrees, internal rotation of 70 degrees. The right shoulder and upper extremity were prepped and draped in the usual sterile fashion. Shoulder joint was injected with 20 mL. A standard posterior portal was placed under direct visualization. Anterior portal was created in the interval between the subscapularis and glenoid. The biceps anchor was absent. The labrum demonstrated degenerative tearing anteriorly from the 1 o'clock to 3 o'clock positions. There is mild chondral softening throughout the glenoid and humeral head centrally, but no unstable chondral flaps. The rotator cuff retracted tear with evidence of the previously placed sutures, approximately 4 cm retracted. Subacromial space demonstrated no significant impingement. The anterior labral tear was debrided with a shaver back to a stable edge. Scope and instruments were then removed. The previously used incision was then utilized. The deltoid was split in line with its fibers leaving attached to the acromion. The rotator cuff tear was mobilized and 2 corkscrew type anchors were placed. The posterior tissue was of poor quality, but was able to be brought to its anatomic attachment. Her bone quality was poor as well, but the anchors were pulled vigorously and found to be stable. There is a second anchor placed anteriorly and this tissue quality was much better and more stable. A modified Mono-Dale repair was performed on both anchor sites with excellent repair obtained. This brought the rotator cuff to its anatomic footprint with 100% coverage over the humeral head. The shoulder joint was copiously irrigated. The deltoid was repaired in [id number] fashion using #2 FiberWire in [id number] interrupted fashion. The wound was further irrigated, 3-0 Vicryl was used to reapproximate subcutaneous tissue and skin was closed with 4-0 nylon in running alternating horizontal mattress fashion. Incision was infiltrated with plain Marcaine. A soft dressing and sling were applied. The patient was transferred to the recovery room awake and in stable condition. Job ID: [id number] DocumentID: [id number] Dictated Date: 08/20/2019 09:32:51 Fish Pitcher Date: 08/20/2019 14:08:28 Dictated By: TITO HART MD
--- OUTSIDE RECORDS SUMMARY | 2019-09-14 19:37 | XMS REPORT | Continuity of Care Document ---
Author Organization Unknown Address Unknown Phone Unavailable Allergies Active Description Code Type Severity Reaction Onset Reported/Identified Relationship to Patient Clinical Status Yes morphine [id number] Drug Allergy Mild N/A 04/12/2013 Yes morphine [id number] Drug Allergy Mild N/V 08/08/2019 Medications There is no data. Problems Date Dx Coded Attending Type Code Diagnosis Diagnosed By 06/28/2011 Ot 727.61 ROT ATOR CUFF RUPTURE 09/21/2011 Ot 727.61 ROT ATOR CUFF RUPTURE 09/21/2011 Ot V57.1 PHYS ICAL THERAPY NEC 04/12/2013 ANGELA ORELLANA MD Ot 802.0 NASAL BONE FX-CLOSED 04/12/2013 ANGELA ORELLANA MD Ot 959.01 HEAD INJURY, NOS 04/12/2013 ANGELA ORELLANA MD Ot E000.8 OTHER EXTERNAL CAUSE STATUS 04/12/2013 ANGELA ORELLANA MD Ot E016.1 ACTIVITIES INVOLVING GARDENING AND LANDS 04/12/2013 ANGELA ORELLANA MD Ot E849.0 ACCIDENT IN HOME 04/12/2013 ANGELA ORELLANA MD Ot E885.9 FALL FROM SLIPPING, TRIPPING, OR STUMBLI 04/21/2013 AURELIAE DDS, ANNETTE Ot 470 DEVIATED NASAL SEPTUM 04/21/2013 LOWE DDS, ANNETTE Ot 802.0 NASAL BONE FX-CLOSED 04/21/2013 LOWE DDS, ANNETTE Ot E000. 8 OTHER EXTERNAL CAUSE STATUS 04/21/2013 LOWE DDS, ANNETTE Ot E849. 0 ACCIDENT IN HOME 04/21/2013 LOWE DDS, ANNETTE Ot E885. 9 FALL FROM SLIPPING, TRIPPING, OR STUMBLI 06/23/2013 JUSTIN WHITEHEAD DO Ot 719.41 JOINT PAIN-SHLDER 06/23/2013 JUSTIN WHITEHEAD DO Ot 719.45 JOINT PAIN-PELVIS 06/23/2013 JUSTIN WHITEHEAD DO Ot 724.5 BACKACHE NOS 06/23/2013 JUSTIN WHITEHEAD DO Ot 729.5 PAIN IN LIMB 06/23/2013 JUSTIN WHITEHEAD DO Ot 802.0 NASAL BONE FX-CLOSED 06/23/2013 JUSTIN WHITEHEAD DO Ot 910.0 ABRASION HEAD 06/23/2013 JUSTIN WHITEHEAD DO Ot 924.8 MULTIPLE CONTUSIONS NEC 06/23/2013 JUSTIN WHITEHEAD DO Ot 959.09 INJURY OF FACE AND NECK 06/23/2013 JUSTIN WHITEHEAD DO Ot E000.8 OTHER EXTERNAL CAUSE STATUS 06/23/2013 JUSTIN WHITEHEAD DO Ot E849.6 ACCIDENT IN PUBLIC BLDG 06/23/2013 JUSTIN WHITEHEAD DO Ot E885.9 FALL FROM SLIPPING, TRIPPING, OR STUMBLI 01/21/2015 SERVANDO PA, MATHEW K Ot 272.4 01/21/2015 SERVANDO PA, MATHEW K Ot 401.9 01/21/2015 SERVANDO PA, MATHEW K Ot 424.0 01/21/2015 SERVANDO PA, MATHEW K Ot 428.0 02/13/2015 SERVANDO PA, MATHEW K Ot 272.4 02/13/2015 SERVANDO PA, MATHEW K Ot 401.9 02/13/2015 SERVANDO PA, MAHTEW K Ot 424.0 02/13/2015 SERVANDO PA, MATHEW K Ot 428.0 03/05/2015 SERVANDO PA, MATHEW K Ot 272.4 03/05/2015 SERVANDO PA, MATHEW K Ot 401.9 03/05/2015 SERVANDO PA, MATHEW K Ot 424.0 03/05/2015 SERVANDO PA, MATHEW K Ot 428.0 03/12/2015 JEFFREY ROLDAN, GARETH R Ot 035 ERYSIPELAS 03/12/2015 JEFFREY ROLDAN, GARETH R Ot 366. 9 CATARACT NOS 03/12/2015 JEFFREY ROLDAN, GARETH R Ot 426. 50 BUNDLE BRANCH BLOCK NOS 03/12/2015 JEFFREY ROLDAN, GARETH R Ot 716. 90 ARTHROPATHY NOS-UNSPEC 04/06/2015 HOPE ROLDAN, SWATHI Vita Ot 618.00 UNSPECIFIED PROLAPSE OF VAGINAL SALAZAR 04/06/2015 HOPE ROLDAN, SWATHI Gorman Ot 625.6 FEM STRESS INCONTINENCE 04/22/2015 HOPE ROLDAN, SWATHI Gorman Ot 285.9 04/22/2015 HOPE ROLDAN, SWATHI Gorman Ot 618.4 04/22/2015 HOPE ROLDAN, SWATHI Gorman Ot V72.83 04/22/2015 HOPE ROLDAN, SWATHI Gorman Ot V74.8 05/10/2015 HOPE ROLDAN, SWATHI Gorman Ot 285.9 05/10/2015 HOPE ROLDAN, SWATHI Gorman Ot 618.4 05/10/2015 HOPE ROLDAN, SWATHI Gorman Ot V72.83 05/10/2015 HOPE ROLDAN, SWATHI Gorman Ot V74.8 05/20/2015 JEFFREY ROLDAN, GARETH Garland Ot V76. 12 02/21/2016 MATHEW IRVIN Ot I10 ESSENTIAL (PRIMARY) HYPERTENSION 02/21/2016 MATHEW IRVIN Ot I44.7 LEFT BUNDLE-BRANCH BLOCK, UNSPECIFIED 02/21/2016 MATHEW IRVIN Ot I50.32 CHRONIC DIASTOLIC (CONGESTIVE) HEART ALIDA 02/21/2016 MATHEW IRVIN Ot R00.2 PALPITATIONS 02/21/2016 MATHEW IRVIN Ot I10 ESSENTIAL (PRIMARY) HYPERTENSION 02/21/2016 MATHEW IRVIN Ot I44.7 LEFT BUNDLE-BRANCH BLOCK, UNSPECIFIED 02/21/2016 MATHEW IRVIN Ot I50.32 CHRONIC DIASTOLIC (CONGESTIVE) HEART ALIDA 02/21/2016 MATHEW IRVIN Ot R00.2 PALPITATIONS 02/22/2016 JEFFREY ROLDAN, GARETH Garland Ot E78. 5 HYPERLIPIDEMIA, UNSPECIFIED 02/22/2016 JEFFREY ROLDAN, GARETH Garland Ot I08. 3 COMB RHEUMATIC DISORD OF MITRAL, AORTIC 02/22/2016 JEFFREY ROLDAN, GARETH R Ot I10 ESSENTIAL (PRIMARY) HYPERTENSION 02/22/2016 JEFFREY ROLDAN, GARETH R Ot I27. 2 OTHER SECONDARY PULMONARY HYPERTENSION 02/22/2016 JEFFREY ROLDAN, GARETH R Ot I44. 7 LEFT BUNDLE-BRANCH BLOCK, UNSPECIFIED 02/22/2016 JEFFREY ROLDAN, GARETH R Ot I50. 32 CHRONIC DIASTOLIC (CONGESTIVE) HEART ALIDA 02/22/2016 JEFFREY ROLDAN, GARETH R Ot I65. 23 OCCLUSION AND STENOSIS OF BILATERAL [place] 02/22/2016 JEFFREY ROLDAN, GARETH R Ot R55 SYNCOPE AND COLLAPSE 03/09/2016 MATHEW IRVIN Ot I10 ESSENTIAL (PRIMARY) HYPERTENSION 03/09/2016 MATHEW IRVIN Ot I44.7 LEFT BUNDLE-BRANCH BLOCK, UNSPECIFIED 03/09/2016 MATHEW IRVIN Ot I50.32 CHRONIC DIASTOLIC (CONGESTIVE) HEART ALIDA 03/09/2016 MATHEW IRVIN Ot R00.2 PALPITATIONS 03/27/2016 MATHEW IRVIN Ot I10 ESSENTIAL (PRIMARY) HYPERTENSION 03/27/2016 MATHEW IRVIN Ot I44.7 LEFT BUNDLE-BRANCH BLOCK, UNSPECIFIED 03/27/2016 MATHEW IRVIN Ot I50.32 CHRONIC DIASTOLIC (CONGESTIVE) HEART ALIDA 03/27/2016 MATHEW IRVIN Ot R00.2 PALPITATIONS 06/28/2016 Ot V76.12 OTH SCREEN MAMMO- MALIGN NEOPLASM OF [place] 06/28/2016 Ot 727.61 ROT ATOR CUFF RUPTURE 06/28/2016 Ot 272.4 HYPE RLIPIDEMIA NEC/NOS 06/28/2016 Ot 727.61 ROT ATOR CUFF RUPTURE 06/28/2016 Ot V72.84 EXA M PRE- OPERATIVE NOS 06/28/2016 Ot V74.8 SCRE EN-BACTERIAL DIS NEC 06/28/2016 Ot 397.0 TRIC USPID VALVE DISEASE 06/28/2016 Ot 424.0 MITR AL VALVE DISORDER 06/28/2016 Ot 428.0 AMAURY ESTIVE HEART FAILURE NOS 06/28/2016 Ot V76.12 OTH SCREEN MAMMO- MALIGN NEOPLASM OF [place] 06/28/2016 Ot 272.4 HYPE RLIPIDEMIA NEC/NOS 06/28/2016 Ot 401.9 HYPE RTENSION NOS 06/28/2016 Ot 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 12 OTH SCREEN MAMMO-MALIGN NEOPLASM OF [place] 06/28/2016 LOWE DDS, ANNETTE Ot 802.0 NASAL BONE FX-CLOSED 06/28/2016 LOWE DDS, ANNETTE Ot E000. 8 OTHER EXTERNAL CAUSE STATUS 06/28/2016 LOWE DDS, ANNETTE Ot E849. 0 ACCIDENT IN HOME 06/28/2016 LOWE DDS, ANNETTE Ot E888. 9 FALL NOS 06/28/2016 LOWE DDS, ANNETTE Ot V72.8 3 EXAM PRE-OPERATIVE NEC 06/28/2016 LOWE DDS, ANNETTE Ot V74.8 SCREEN-BACTERIAL DIS NEC 06/28/2016 BERNADETTE BEYER PROCESS DEVELOPMENT ENGINEER Ot 272.4 HYPERLIPIDEMIA NEC/NOS 06/28/2016 MATHEW IRVIN Ot 272.4 HYPERLIPIDEMIA NEC/NOS 06/28/2016 MATHEW IRVIN Ot 401.9 HYPERTENSION NOS 06/28/2016 MATHEW IRVIN Ot 414.01 CORONARY ATHEROSCLEROSIS OF [place] CORON 06/28/2016 MATHEW IRVIN Ot 428.0 CONGESTIVE HEART FAILURE NOS 06/28/2016 MATHEW IRVIN Ot 272.4 HYPERLIPIDEMIA NEC/NOS 06/28/2016 MATHEW IRVIN Ot 397.0 TRICUSPID VALVE DISEASE 06/28/2016 MATHEW IRVIN Ot 401.9 HYPERTENSION NOS 06/28/2016 MATHEW IRVIN Ot 414.00 CORON ATHEROSCLER NOS TYPE VESSEL, NATIV 06/28/2016 MATHEW IRVIN Ot 416.8 CHR PULMON HEART DIS NEC 06/28/2016 WEISS-ML PA, MATHEW K Ot 424.0 MITRAL VALVE DISORDER 06/28/2016 SERVANDO HENRY, MATHEW K Ot 428.0 CONGESTIVE HEART FAILURE NOS 06/28/2016 JEFFREY ROLDAN, GARETH R Ot 729. 81 SWELLING OF LIMB 06/28/2016 JEFFREY ROLDAN, GARETH R Ot V76. 12 OTH SCREEN MAMMO-MALIGN NEOPLASM OF [place] 06/28/2016 JEFFREY ROLDAN, GARETH R Ot V76. 12 OTH SCREEN MAMMO-MALIGN NEOPLASM OF [place] 06/28/2016 SERVANDO HENRY, MATHEW K Ot 272.4 HYPERLIPIDEMIA NEC/NOS 06/28/2016 SERVANDO HENRY, MATHEW K Ot 401.9 HYPERTENSION NOS 06/28/2016 SERVANDO HENRY, MATHEW K Ot 428.0 CONGESTIVE HEART FAILURE NOS 06/28/2016 SERVANDO HNERY, MATHEW K Ot 272.4 HYPERLIPIDEMIA NEC/NOS 06/28/2016 SERVANDO HENRY MATHEW K Ot 401.9 HYPERTENSION NOS 06/28/2016 SERVANDO HENRY, MATHEW K Ot 424.0 MITRAL VALVE DISORDER 06/28/2016 SERVANDO HENRY, MATHEW K Ot 428.0 CONGESTIVE HEART FAILURE NOS 06/28/2016 OHPE ROLDAN, SWATHI Gorman Ot 285.9 ANEMIA NOS 06/28/2016 HOPE ROLDAN, SWATHI Gorman Ot 618.4 UTERVAGINAL PROLAPSE NOS 06/28/2016 HOPE ROLDAN, SWATHI Gorman Ot V72.83 EXAM PRE-OPERATIVE NEC 06/28/2016 SWATHI ARNETT MD Ot V74.8 SCREEN-BACTERIAL DIS NEC 06/28/2016 JEFFREY ROLDAN, GARETH R Ot V76. 12 OTH SCREEN MAMMO-MALIGN NEOPLASM OF [place] 06/28/2016 MATHEW IRVIN Ot I10 ESSENTIAL (PRIMARY) HYPERTENSION 06/28/2016 MATHEW IRVIN Ot I44.7 LEFT BUNDLE-BRANCH BLOCK, UNSPECIFIED 06/28/2016 MATHEW IRVIN Ot I50.32 CHRONIC DIASTOLIC (CONGESTIVE) HEART ALIDA 06/28/2016 MATHEW IRVIN Ot R00.2 PALPITATIONS 06/28/2016 Ot V76.12 OTH SCREEN MAMMO- MALIGN NEOPLASM OF [place] 06/28/2016 Ot 727.61 ROT ATOR CUFF RUPTURE 06/28/2016 Ot 272.4 HYPE RLIPIDEMIA NEC/NOS 06/28/2016 Ot 727.61 ROT ATOR CUFF RUPTURE 06/28/2016 Ot V72.84 EXA M PRE- OPERATIVE NOS 06/28/2016 Ot V74.8 SCRE EN-BACTERIAL DIS NEC 06/28/2016 Ot 397.0 TRIC USPID VALVE DISEASE 06/28/2016 Ot 424.0 MITR AL VALVE DISORDER 06/28/2016 Ot 428.0 AMAURY ESTIVE HEART FAILURE NOS 06/28/2016 Ot V76.12 OTH SCREEN MAMMO- MALIGN NEOPLASM OF [place] 06/28/2016 Ot 272.4 HYPE RLIPIDEMIA NEC/NOS 06/28/2016 Ot 401.9 HYPE RTENSION NOS 06/28/2016 Ot 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 12 OTH SCREEN MAMMO-MALIGN NEOPLASM OF [place] 06/28/2016 LOWE DDS, ANNETTE Ot 802.0 NASAL BONE FX-CLOSED 06/28/2016 LOWE DDS, ANNETTE Ot E000. 8 OTHER EXTERNAL CAUSE STATUS 06/28/2016 LOWE DDS, ANNETTE Ot E849. 0 ACCIDENT IN HOME 06/28/2016 LOWE DDS, ANNETTE Ot E888. 9 FALL NOS 06/28/2016 LOWE DDS, ANNETTE Ot V72.8 3 EXAM PRE-OPERATIVE NEC 06/28/2016 LOWE DDS, ANNETTE Ot V74.8 SCREEN-BACTERIAL DIS NEC 06/28/2016 BERNADETTE BEYER Ot 272.4 HYPERLIPIDEMIA NEC/NOS 06/28/2016 MATHEW IRVIN Ot 272.4 HYPERLIPIDEMIA NEC/NOS 06/28/2016 MATHEW IRVIN Ot 401.9 HYPERTENSION NOS 06/28/2016 MATHEW IRVIN Ot 414.01 CORONARY ATHEROSCLEROSIS OF [place] CORON 06/28/2016 SERVANDO HENRY MATHEW K Ot 428.0 CONGESTIVE HEART FAILURE NOS 06/28/2016 SERVANDO HENRY MATHEW K Ot 272.4 HYPERLIPIDEMIA NEC/NOS 06/28/2016 SERVANDO HENRY MATHEW K Ot 397.0 TRICUSPID VALVE DISEASE 06/28/2016 SERVANDO HENRY MATHEW K Ot 401.9 HYPERTENSION NOS 06/28/2016 SERVANDO HENRY MATHEW K Ot 414.00 CORON ATHEROSCLER NOS TYPE VESSEL, NATIV 06/28/2016 SERVANDO HENRY MATHEW K Ot 416.8 CHR PULMON HEART DIS NEC 06/28/2016 MATHEW IRVIN Ot 424.0 MITRAL VALVE DISORDER 06/28/2016 SERVANDO HENRY MATHEW K Ot 428.0 CONGESTIVE HEART FAILURE NOS 06/28/2016 JEFFREY ROLDAN, GARETH R Ot 729. 81 SWELLING OF LIMB 06/28/2016 JEFFREY ROLDAN, GARETH R Ot V76. 12 OTH SCREEN MAMMO-MALIGN NEOPLASM OF [place] 06/28/2016 JEFFREY ROLDAN, GARETH R Ot V76. 12 OTH SCREEN MAMMO-MALIGN NEOPLASM OF [place] 06/28/2016 SERVANDO HENRY MATHEW K Ot 272.4 HYPERLIPIDEMIA NEC/NOS 06/28/2016 MATHEW IRVIN Ot 401.9 HYPERTENSION NOS 06/28/2016 SERVANDO HENRY MATHEW K Ot 428.0 CONGESTIVE HEART FAILURE NOS 06/28/2016 MATHEW IRVIN Ot 272.4 HYPERLIPIDEMIA NEC/NOS 06/28/2016 MATHEW IRVIN Ot 401.9 HYPERTENSION NOS 06/28/2016 SERVANDO HENRY MATHEW K Ot 424.0 MITRAL VALVE DISORDER 06/28/2016 MATHEW IRVIN Ot 428.0 CONGESTIVE HEART FAILURE NOS 06/28/2016 SWATHI ARNETT MD Ot 285.9 ANEMIA NOS 06/28/2016 SWATHI ARNETT MD Ot 618.4 UTERVAGINAL PROLAPSE NOS 06/28/2016 SWATHI ARNETT MD Ot V72.83 EXAM PRE-OPERATIVE NEC 06/28/2016 HOPE ROLDAN, SWATHI Gorman Ot V74.8 SCREEN-BACTERIAL DIS NEC 06/28/2016 GARETH MURPHY MD Ot V76. 12 OTH SCREEN MAMMO-MALIGN NEOPLASM OF [place] 06/28/2016 MATHEW IRVIN Ot I10 ESSENTIAL (PRIMARY) HYPERTENSION 06/28/2016 MATHEW IRVIN Ot I44.7 LEFT BUNDLE-BRANCH BLOCK, UNSPECIFIED 06/28/2016 MATHEW IRVIN Ot I50.32 CHRONIC DIASTOLIC (CONGESTIVE) HEART ALIDA 06/28/2016 MATHEW IRVIN Ot R00.2 PALPITATIONS 06/28/2016 GARETH MURPHY MD R Ot Z12. 31 ENCNTR SCREEN MAMMOGRAM FOR MALIGNANT NE 06/30/2016 GARETH MURPHY MD R Ot N64. 89 OTHER SPECIFIED DISORDERS OF BREAST 06/30/2016 GARETH MURPHY MD R Ot Z12. 31 ENCNTR SCREEN MAMMOGRAM FOR MALIGNANT NE 07/04/2016 GARETH MURPHY MD R Ot N64. 89 OTHER SPECIFIED DISORDERS OF BREAST 07/04/2016 GARETH MURPHY MD R Ot Z12. 31 ENCNTR SCREEN MAMMOGRAM FOR MALIGNANT NE 07/05/2016 GARETH MURPHY MD R Ot R92. 8 OTH ABN AND INCONCLUSIVE FINDINGS ON DX 07/06/2016 GARETH MURPHY MD R Ot R92. 8 OTH ABN AND INCONCLUSIVE FINDINGS ON DX 07/11/2016 GARETH MURPHY MD R Ot N64. 89 OTHER SPECIFIED DISORDERS OF BREAST 07/11/2016 GARETH MURPHY MD R Ot Z12. 31 ENCNTR SCREEN MAMMOGRAM FOR MALIGNANT NE 07/14/2016 GARETH MURPHY MD R Ot R92. 8 OTH ABN AND INCONCLUSIVE FINDINGS ON DX 07/26/2016 SHANE KAUFMAN APRN Ot I10 ESSENTIAL (PRIMARY) HYPERTENSION 07/26/2016 SHANE KAUFMAN APRN Ot I44 .7 LEFT BUNDLE-BRANCH BLOCK, UNSPECIFIED 07/26/2016 SHANE KAUFMAN APRN Ot M19.011 PRIMARY OSTEOARTHRITIS, RIGHT SHOULDER 07/26/2016 SHANE KAUFMAN APRN Ot M47.812 SPONDYLOSIS W/O MYELOPATHY OR RADICULOPA 07/26/2016 SHANE KAUFMAN APRN Ot S01.81XA LACERATION W/O FOREIGN BODY OF OTH PART 07/26/2016 SHANE KAUFMAN APRN Ot S02.2XXA FRACTURE OF NASAL BONES, INIT ENCNTR FOR 07/26/2016 SHANE KAUFMAN APRN Ot S40.211A ABRASION OF RIGHT SHOULDER, INITIAL ENCO 07/26/2016 SHANE KAUFMAN APRN Ot W01.0XXA FALL SAME LEV FROM SLIP/TRIP W/O STRIKE 07/26/2016 SHANE KAUFMAN APRN Ot Y92.414 LOCAL RESIDENTIAL OR BUSINESS STREET 07/26/2016 SHANE KAUFMAN APRN Ot Y93.89 ACTIVITY, OTHER SPECIFIED 07/26/2016 SHANE KAUFMAN APRN Ot Y99 .8 OTHER EXTERNAL CAUSE STATUS 07/26/2016 SHANE KAUFMAN APRN Ot Z79.82 FOOD AND BEVERAGE ASSISTANT (CURRENT) USE OF ASPIRIN 07/26/2016 SHANE KAUFMAN APRN Ot Z79.899 OTHER [facility] (CURRENT) DRUG THERAPY 08/01/2016 SHANE KAUFMAN APRN Ot I10 ESSENTIAL (PRIMARY) HYPERTENSION 08/01/2016 SHANE KAUFMAN APRN Ot I44 .7 LEFT BUNDLE-BRANCH BLOCK, UNSPECIFIED 08/01/2016 SHANE KAUFMAN APRN Ot M19.011 PRIMARY OSTEOARTHRITIS, RIGHT SHOULDER 08/01/2016 SHANE KAUFMAN APRN Ot M47.812 SPONDYLOSIS W/O MYELOPATHY OR RADICULOPA 08/01/2016 SHANE KAUFMAN APRN Ot S01.81XA LACERATION W/O FOREIGN BODY OF OTH PART 08/01/2016 SHANE KAUFMAN APRN Ot S02.2XXA FRACTURE OF NASAL BONES, INIT ENCNTR FOR 08/01/2016 SHANE KAUFMAN APRN Ot S40.211A ABRASION OF RIGHT SHOULDER, INITIAL ENCO 08/01/2016 SHANE KAUFMAN APRN Ot W01.0XXA FALL SAME LEV FROM SLIP/TRIP W/O STRIKE 08/01/2016 SHANE KAUFMAN APRN Ot Y92.414 LOCAL RESIDENTIAL OR BUSINESS STREET 08/01/2016 SHANE KAUFMAN APRN Ot Y93.89 ACTIVITY, OTHER SPECIFIED 08/01/2016 SHANE KAUFMAN DROSOPHERE OPERATOR Ot Y99 .8 OTHER EXTERNAL CAUSE STATUS 08/01/2016 SHANE KAUFMAN DROSOPHERE OPERATOR Ot Z79.82 [facility] (CURRENT) USE OF ASPIRIN 08/01/2016 SHANE KAUFMAN DROSOPHERE OPERATOR Ot Z79.899 OTHER FOOD AND BEVERAGE ASSISTANT (CURRENT) DRUG THERAPY 2016 JEFFREY ROLDAN, GARETH R Ot R92. 8 OTH ABN AND INCONCLUSIVE FINDINGS ON DX 11/02/2016 JEFFREY ROLDAN, GARETH R Ot M25.562 PAIN IN LEFT KNEE 11/02/2016 JEFFREY ROLDAN, GARETH R Ot M79.605 PAIN IN LEFT LEG 11/02/2016 JEFFREY ROLDAN, GARETH R Ot M25.562 PAIN IN LEFT KNEE 11/02/2016 JEFFREY ROLDAN, GARETH R Ot M79.605 PAIN IN LEFT LEG 11/28/2016 JEFFREY ROLDAN, GARETH R Ot M25.562 PAIN IN LEFT KNEE 11/28/2016 JEFFREY ROLDAN, GARETH R Ot M79.605 PAIN IN LEFT LEG 12/06/2016 JEFFREY ROLDAN, GARETH R Ot M25.562 PAIN IN LEFT KNEE 12/06/2016 JEFFREY ROLDAN, GARETH R Ot M79.605 PAIN IN LEFT LEG 12/20/2016 MATA HART MD Ot M17.12 UNILATERAL PRIMARY OSTEOARTHRITIS, LEFT 12/20/2016 MATA HART MD Ot R53.83 OTHER FATIGUE 12/20/2016 MATA HART MD Ot Z01.811 ENCOUNTER FOR PREPROCEDURAL RESPIRATORY 12/20/2016 MATA HART MD Ot Z01.812 ENCOUNTER FOR PREPROCEDURAL LABORATORY E 12/20/2016 MATA HART MD Ot Z11.2 ENCOUNTER FOR SCREENING FOR OTHER BACTER 12/21/2016 MATA HART MD Ot M17.12 UNILATERAL PRIMARY OSTEOARTHRITIS, LEFT 12/21/2016 MATA HART MD Ot R53.83 OTHER FATIGUE 12/21/2016 MATA HART MD Ot Z01.811 ENCOUNTER FOR PREPROCEDURAL RESPIRATORY 12/21/2016 MATA HART MD Ot Z01.812 ENCOUNTER FOR PREPROCEDURAL LABORATORY E 12/21/2016 MATA HART MD Ot Z11.2 ENCOUNTER FOR SCREENING FOR OTHER BACTER 12/30/2016 MATA HART MD Ot D6 2 ACUTE POSTHEMORRHAGIC ANEMIA 12/30/2016 MATA HART MD Ot E78.5 HYPERLIPIDEMIA, UNSPECIFIED 12/30/2016 MATA HART MD Ot H35.30 UNSPECIFIED MACULAR DEGENERATION 12/30/2016 MATA HART MD Ot I08.3 COMB RHEUMATIC DISORD OF MITRAL, AORTIC 12/30/2016 MATA HART MD Ot I11.0 HYPERTENSIVE HEART DISEASE WITH HEART FA 12/30/2016 MATA HART MD, Ot I25.10 ATHSCL HEART DISEASE OF [place] CORONARY 12/30/2016 MATA HART MD, Ot I27.2 OTHER SECONDARY PULMONARY HYPERTENSION 12/30/2016 MATA HART MD Ot I42.9 CARDIOMYOPATHY, UNSPECIFIED 12/30/2016 MATA HART MD Ot I44.7 LEFT BUNDLE-BRANCH BLOCK, UNSPECIFIED 12/30/2016 MATA HART MD Ot I50.32 CHRONIC DIASTOLIC (CONGESTIVE) HEART ALIDA 12/30/2016 MATA HART MD, Ot I65.23 OCCLUSION AND STENOSIS OF BILATERAL [place] 12/30/2016 MATA HART MD Ot J30.2 OTHER SEASONAL ALLERGIC RHINITIS 12/30/2016 MATA HART MD Ot M17.12 UNILATERAL PRIMARY OSTEOARTHRITIS, LEFT 12/30/2016 MATA HART MD Ot M19.90 UNSPECIFIED OSTEOARTHRITIS, UNSPECIFIED 12/30/2016 MATA HART MD Ot N81.10 CYSTOCELE, UNSPECIFIED 12/30/2016 MATA HART MD Ot Z87.891 PERSONAL HISTORY OF NICOTINE DEPENDENCE 01/16/2017 MATA HART MD Ot Z47.1 AFTERCARE FOLLOWING JOINT REPLACEMENT ESPINOZA 01/16/2017 MATA HART MD Ot Z96.652 PRESENCE OF LEFT ARTIFICIAL KNEE JOINT 02/16/2017 MATA HART MD Ot Z47.1 AFTERCARE FOLLOWING JOINT REPLACEMENT [place] 02/16/2017 MATA HART MD Ot Z96.652 PRESENCE OF LEFT ARTIFICIAL KNEE JOINT 07/19/2017 GARETH MURPHY MD Ot R92. 2 INCONCLUSIVE MAMMOGRAM 07/19/2017 SEGLIE MD, GARETH R Ot R92. 8 OTH ABN AND INCONCLUSIVE FINDINGS ON DX 08/13/2017 GARETH MURPHY MD Ot R92. 8 OTH ABN AND INCONCLUSIVE FINDINGS ON DX 08/16/2017 GARETH MURPHY MD Ot R92. 8 OTH ABN AND INCONCLUSIVE FINDINGS ON DX 10/23/2017 ANNABEL PURI MD Ot E78. 2 MIXED HYPERLIPIDEMIA 10/23/2017 ANNABEL PURI MD Ot I11. 0 HYPERTENSIVE HEART DISEASE WITH HEART FA 10/23/2017 JAXSON ROLDAN, ANNABEL Orta Ot I50. 32 CHRONIC DIASTOLIC (CONGESTIVE) HEART ALIDA 10/23/2017 ANNABEL PURI MD Ot R00. 2 PALPITATIONS 10/23/2017 ANNABEL PURI MD Ot R06. 00 DYSPNEA, UNSPECIFIED 11/09/2017 ANNABEL PURI MD Ot E78. 2 MIXED HYPERLIPIDEMIA 11/09/2017 ANNABEL PURI MD Ot I11. 0 HYPERTENSIVE HEART DISEASE WITH HEART FA 11/09/2017 ANNABEL PURI MD Ot I50. 32 CHRONIC DIASTOLIC (CONGESTIVE) HEART ALIDA 11/09/2017 ANNABEL PURI MD Ot R00. 2 PALPITATIONS 11/09/2017 ANNABEL PURI MD Ot R06. 00 DYSPNEA, UNSPECIFIED 08/06/2018 GARETH MURPHY MD Ot V76. 12 OTH SCREEN MAMMO-MALIGN NEOPLASM OF [place] 08/06/2018 LOWE DDS, ANNETTE Ot 802.0 NASAL BONE FX-CLOSED 08/06/2018 LOWE DDS, ANNETTE Ot E000. 8 OTHER EXTERNAL CAUSE STATUS 08/06/2018 LOWE DDS, ANNETTE Ot E849. 0 ACCIDENT IN HOME 08/06/2018 LOWE DDS, ANNETTE Ot E888. 9 FALL NOS 08/06/2018 LOWE DDS, ANNETTE Ot V72.8 3 EXAM PRE-OPERATIVE NEC 08/06/2018 LOWE DDS, NANETTE Ot V74.8 SCREEN-BACTERIAL DIS NEC 08/06/2018 BERNADETTE BEYER Ot 272.4 HYPERLIPIDEMIA NEC/NOS 08/06/2018 MATHEW IRVIN Ot 272.4 HYPERLIPIDEMIA NEC/NOS 08/06/2018 MATHEW IRVIN Ot 401.9 HYPERTENSION NOS 08/06/2018 SERVANDO HENRY MATHEW Burgos Ot 414.01 CORONARY ATHEROSCLEROSIS OF [place] CORON 08/06/2018 SERVANDO HENRY MATHEW K Ot 428.0 CONGESTIVE HEART FAILURE NOS 08/06/2018 SERVANDO HENRY MATHEW Aubrey Ot 272.4 HYPERLIPIDEMIA NEC/NOS 08/06/2018 SERVANDO HENRY MATHEW K Ot 397.0 TRICUSPID VALVE DISEASE 08/06/2018 SERVANDO HENRY MATHEW K Ot 401.9 HYPERTENSION NOS 08/06/2018 SERVANDO HENRY MATHEW Burgos Ot 414.00 CORON ATHEROSCLER NOS TYPE VESSEL, NATIV 08/06/2018 SERVANDO HENRY MATHEW K Ot 416.8 CHR PULMON HEART DIS NEC 08/06/2018 SERVANDO HENRY MATHEW K Ot 424.0 MITRAL VALVE DISORDER 08/06/2018 SERVANDO HENRY MATHEW K Ot 428.0 CONGESTIVE HEART FAILURE NOS 08/06/2018 JEFFREY ROLDAN, GARETH R Ot 729. 81 SWELLING OF LIMB 08/06/2018 JEFFREY ROLDAN, GARETH R Ot V76. 12 OTH SCREEN MAMMO-MALIGN NEOPLASM OF [place] 08/06/2018 JEFFREY ROLDAN, GARETH R Ot V76. 12 OTH SCREEN MAMMO-MALIGN NEOPLASM OF [place] 08/06/2018 SERVANDO HENRY MATHEW Aubrey Ot 272.4 HYPERLIPIDEMIA NEC/NOS 08/06/2018 SERVANDO HENRY MATHEW K Ot 401.9 HYPERTENSION NOS 08/06/2018 SERVANDO HENRY MATHEW K Ot 428.0 CONGESTIVE HEART FAILURE NOS 08/06/2018 SERVANDO HENRY MATHEW Burgos Ot 272.4 HYPERLIPIDEMIA NEC/NOS 08/06/2018 SERVANDO HENRY MATHEW K Ot 401.9 HYPERTENSION NOS 08/06/2018 SERVANDO HENRY MATHEW K Ot 424.0 MITRAL VALVE DISORDER 08/06/2018 SERVANDO HENRY MATHEW K Ot 428.0 CONGESTIVE HEART FAILURE NOS 08/06/2018 SWATHI ARNETT MD Ot 285.9 ANEMIA NOS 08/06/2018 HOPE ROLDAN, SWATHI Gorman Ot 618.4 UTERVAGINAL PROLAPSE NOS 08/06/2018 HOPE ROLDAN, SWATHI Gorman Ot V72.83 EXAM PRE-OPERATIVE NEC 08/06/2018 SWATHI ARNETT MD Ot V74.8 SCREEN-BACTERIAL DIS NEC 08/06/2018 GARETH MURPHY MD Ot V76. 12 OTH SCREEN MAMMO-MALIGN NEOPLASM OF [place] 08/06/2018 MATHEW IRVIN Ot I10 ESSENTIAL (PRIMARY) HYPERTENSION 08/06/2018 MATHEW IRVIN Ot I44.7 LEFT BUNDLE-BRANCH BLOCK, UNSPECIFIED 08/06/2018 MATHEW IRVIN Ot I50.32 CHRONIC DIASTOLIC (CONGESTIVE) HEART ALIDA 08/06/2018 MATHEW IRVIN Ot R00.2 PALPITATIONS 08/06/2018 GARETH MURPHY MD Ot N64. 89 OTHER SPECIFIED DISORDERS OF BREAST 08/06/2018 GARETH MURPHY MD Ot Z12. 31 ENCNTR SCREEN MAMMOGRAM FOR MALIGNANT NE 08/06/2018 GARETH MURPHY MD Ot R92. 8 OTH ABN AND INCONCLUSIVE FINDINGS ON DX 08/06/2018 GARETH MURPHY MD Ot M25.562 PAIN IN LEFT KNEE 08/06/2018 GARETH MURPHY MD Ot M79.605 PAIN IN LEFT LEG 08/06/2018 ANNABEL PURI MD Ot E78. 2 MIXED HYPERLIPIDEMIA 08/06/2018 ANNABEL PURI MD Ot I11. 0 HYPERTENSIVE HEART DISEASE WITH HEART FA 08/06/2018 ANNABEL PURI MD Ot I50. 32 CHRONIC DIASTOLIC (CONGESTIVE) HEART ALIDA 08/06/2018 ANNABEL PURI MD Ot R00. 2 PALPITATIONS 08/06/2018 ANNABEL PURI MD Ot R06. 00 DYSPNEA, UNSPECIFIED 08/06/2018 GARETH MURPHY MD Ot R92. 8 OTH ABN AND INCONCLUSIVE FINDINGS ON DX 08/06/2018 ORACIO ROBLERO MD Ot Z12. 31 ENCNTR SCREEN MAMMOGRAM FOR MALIGNANT NE 08/29/2018 ORACIO ROBLERO MD Ot Z12. 31 ENCNTR SCREEN MAMMOGRAM FOR MALIGNANT NE 04/15/2019 MATHEW IRVIN Ot 272.4 HYPERLIPIDEMIA NEC/NOS 04/15/2019 SERVANDO HENRY, MATHEW K Ot 401.9 HYPERTENSION NOS 04/15/2019 SERVANDO HENRY, MATHEW K Ot 414.01 CORONARY ATHEROSCLEROSIS OF [place] CORON 04/15/2019 SERVANDO HENRY MATHEW K Ot 428.0 CONGESTIVE HEART FAILURE NOS 04/15/2019 SERVANDO HENRY MATHEW K Ot 272.4 HYPERLIPIDEMIA NEC/NOS 04/15/2019 SERVANDO HENRY MATHEW K Ot 397.0 TRICUSPID VALVE DISEASE 04/15/2019 SERVANDO HENRY MATHEW K Ot 401.9 HYPERTENSION NOS 04/15/2019 SERVANDO HENRY, MATHEW K Ot 414.00 CORON ATHEROSCLER NOS TYPE VESSEL, NATIV 04/15/2019 MATHEW IRVIN Ot 416.8 CHR PULMON HEART DIS NEC 04/15/2019 SERVANDO HENRY MATHEW K Ot 424.0 MITRAL VALVE DISORDER 04/15/2019 SEVRANDO HENRY MATHEW K Ot 428.0 CONGESTIVE HEART FAILURE NOS 04/15/2019 JEFFREY ROLDAN, GARETH R Ot 729. 81 SWELLING OF LIMB 04/15/2019 JEFFREY ROLDAN, GARETH R Ot V76. 12 OTH SCREEN MAMMO-MALIGN NEOPLASM OF [place] 04/15/2019 JEFFREY ROLDAN, GARETH R Ot V76. 12 OTH SCREEN MAMMO-MALIGN NEOPLASM OF [place] 04/15/2019 SERVANDO HENRY MATHEW K Ot 272.4 HYPERLIPIDEMIA NEC/NOS 04/15/2019 SERVANDO HENRY MATHEW K Ot 401.9 HYPERTENSION NOS 04/15/2019 SERVANDO HENRY MATHEW K Ot 428.0 CONGESTIVE HEART FAILURE NOS 04/15/2019 SERVANDO HENRY MATHEW K Ot 272.4 HYPERLIPIDEMIA NEC/NOS 04/15/2019 SERVANDO HENRY MATHEW K Ot 401.9 HYPERTENSION NOS 04/15/2019 SERVANDO HENRY, MATHEW K Ot 424.0 MITRAL VALVE DISORDER 04/15/2019 SERVANDO HENRY MATHEW K Ot 428.0 CONGESTIVE HEART FAILURE NOS 04/15/2019 SWATHI ARNETT MD Ot 285.9 ANEMIA NOS 04/15/2019 SWATHI ARNETT MD Ot 618.4 UTERVAGINAL PROLAPSE NOS 04/15/2019 SWATHI ARNETT MD Ot V72.83 EXAM PRE-OPERATIVE NEC 04/15/2019 SWATHI ARNETT MD, Ot V74.8 SCREEN-BACTERIAL DIS NEC 04/15/2019 GARETH MURPHY MD Ot V76. 12 OTH SCREEN MAMMO-MALIGN NEOPLASM OF [place] 04/15/2019 MATHEW IRVIN Ot I10 ESSENTIAL (PRIMARY) HYPERTENSION 04/15/2019 MATHEW IRVIN Ot I44.7 LEFT BUNDLE-BRANCH BLOCK, UNSPECIFIED 04/15/2019 MATHEW IRVIN Ot I50.32 CHRONIC DIASTOLIC (CONGESTIVE) HEART ALIDA 04/15/2019 MATHEW IRVIN Ot R00.2 PALPITATIONS 04/15/2019 GARETH MURPHY MD Ot N64. 89 OTHER SPECIFIED DISORDERS OF BREAST 04/15/2019 GARETH MURPHY MD Ot Z12. 31 ENCNTR SCREEN MAMMOGRAM FOR MALIGNANT NE 04/15/2019 GARETH MURPHY MD Ot R92. 8 OTH ABN AND INCONCLUSIVE FINDINGS ON DX 04/15/2019 GARETH MURPHY MD Ot M25.562 PAIN IN LEFT KNEE 04/15/2019 GARETH MURPHY MD Ot M79.605 PAIN IN LEFT LEG 04/15/2019 ANNABEL PURI MD Ot E78. 2 MIXED HYPERLIPIDEMIA 04/15/2019 ANNABEL PURI MD Ot I11. 0 HYPERTENSIVE HEART DISEASE WITH HEART FA 04/15/2019 ANNABEL PURI MD Ot I50. 32 CHRONIC DIASTOLIC (CONGESTIVE) HEART ALIDA 04/15/2019 ANNABEL PURI MD Ot R00. 2 PALPITATIONS 04/15/2019 ANNABEL PURI MD Ot R06. 00 DYSPNEA, UNSPECIFIED 04/15/2019 GARETH MURPHY MD Ot R92. 8 OTH ABN AND INCONCLUSIVE FINDINGS ON DX 04/15/2019 ANNIKA ROLDAN, ORACIO Cortez Ot Z12. 31 ENCNTR SCREEN MAMMOGRAM FOR MALIGNANT NE 04/22/2019 ANNABEL PURI MD Ot E78. 2 MIXED HYPERLIPIDEMIA 04/22/2019 ANNABEL PURI MD Ot I08. 3 COMB RHEUMATIC DISORD OF MITRAL, AORTIC 04/22/2019 ANNABEL PURI MD Ot I11. 0 HYPERTENSIVE HEART DISEASE WITH HEART FA 04/22/2019 ANNABEL PURI MD Ot I50. 9 HEART FAILURE, UNSPECIFIED 04/22/2019 ANNABEL PURI MD Ot I65. 23 OCCLUSION AND STENOSIS OF BILATERAL [place] 04/25/2019 ANNABEL PURI MD Ot E78. 2 MIXED HYPERLIPIDEMIA 04/25/2019 ANNABEL PURI MD Ot I11. 0 HYPERTENSIVE HEART DISEASE WITH HEART FA 04/25/2019 ANNABEL PURI MD Ot I50. 9 HEART FAILURE, UNSPECIFIED 04/25/2019 ANNABEL PURI MD Ot I65. 23 OCCLUSION AND STENOSIS OF BILATERAL [place] 05/12/2019 ANNABEL PURI MD Ot E78. 2 MIXED HYPERLIPIDEMIA 05/12/2019 ANNABEL PURI MD Ot I08. 3 COMB RHEUMATIC DISORD OF MITRAL, AORTIC 05/12/2019 ANNABEL PURI MD Ot I11. 0 HYPERTENSIVE HEART DISEASE WITH HEART FA 05/12/2019 ANNABEL PURI MD Ot I50. 9 HEART FAILURE, UNSPECIFIED 05/12/2019 ANNABEL PURI MD Ot I65. 23 OCCLUSION AND STENOSIS OF BILATERAL [place] 05/22/2019 ANNABEL PURI MD Ot E78. 2 MIXED HYPERLIPIDEMIA 05/22/2019 ANNABEL PURI MD Ot I11. 0 HYPERTENSIVE HEART DISEASE WITH HEART FA 05/22/2019 ANNABEL PURI MD Ot I50. 9 HEART FAILURE, UNSPECIFIED 05/22/2019 ANNABEL PURI MD Ot I65. 23 OCCLUSION AND STENOSIS OF BILATERAL [place] 07/24/2019 MATA HART MD Ot M19.011 PRIMARY OSTEOARTHRITIS, RIGHT SHOULDER 07/24/2019 MATA HART MD Ot M75.121 COMPLETE ROTATR-CUFF TEAR/RUPTR OF R CARLOS 08/08/2019 MATA HART MD Ot M19.011 PRIMARY OSTEOARTHRITIS, RIGHT SHOULDER 08/08/2019 MATA HART MD Ot M75.121 COMPLETE ROTATR-CUFF TEAR/RUPTR OF R CARLOS 08/13/2019 MATA HART MD Ot M19.011 PRIMARY OSTEOARTHRITIS, RIGHT SHOULDER 08/13/2019 MATA HART MD, Ot M75.121 COMPLETE ROTATR-CUFF TEAR/RUPTR OF R CARLOS 08/25/2019 MATA HART MD, Ot G89.18 OTHER ACUTE POSTPROCEDURAL PAIN 08/25/2019 MATA HART MD, Ot H35.30 UNSPECIFIED MACULAR DEGENERATION 08/25/2019 MATA HART MD, Ot I11.9 HYPERTENSIVE HEART DISEASE WITHOUT HEART 08/25/2019 MATA HART MD, Ot 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, RIG 08/25/2019 MATA HART MD, Ot S46.011A STRAIN OF MUSC/TEND THE ROTATOR CUFF OF 08/25/2019 MATA HART MD, Ot Z79.899 OTHER FOOD AND BEVERAGE ASSISTANT (CURRENT) DRUG THERAPY 08/25/2019 MATA HART MD, Ot Z88.5 ALLERGY STATUS TO NARCOTIC AGENT STATUS 08/25/2019 MATA HART MD, Ot Z90.49 ACQUIRED ABSENCE OF OTHER SPECIFIED PART 08/25/2019 MATA HART MD, Ot Z90.710 ACQUIRED ABSENCE OF BOTH CERVIX AND UTER 08/25/2019 MATA HART MD, Ot Z96.652 PRESENCE OF LEFT ARTIFICIAL KNEE JOINT 08/29/2019 MATA HART MD, Ot H26.9 UNSPECIFIED CATARACT 08/29/2019 MATA HART MD, Ot I50.9 HEART FAILURE, UNSPECIFIED 08/29/2019 MATA HART MD Ot M75.121 COMPLETE ROTATR-CUFF TEAR/RUPTR OF R CARLOS 08/29/2019 MATA HART MD Ot Z96.652 PRESENCE OF LEFT ARTIFICIAL KNEE JOINT 08/29/2019 MATA HART MD Ot Z98.890 OTHER SPECIFIED POSTPROCEDURAL STATES 09/02/2019 MATA HART MD, Ot H26.9 UNSPECIFIED CATARACT 09/02/2019 MATA HART MD, Ot I50.9 HEART FAILURE, UNSPECIFIED 09/02/2019 MATA HART MD Ot M75.121 COMPLETE ROTATR-CUFF TEAR/RUPTR OF R CARLOS 09/02/2019 MATA HART MD Ot Z96.652 PRESENCE OF LEFT ARTIFICIAL KNEE JOINT 09/02/2019 MATA HART MD Ot Z98.890 OTHER SPECIFIED POSTPROCEDURAL STATES Procedures Code Description Performed By Per formed On [id number] RE PLACE OF L KNEE JT WITH SYNTH SUB, YUMIKO 12/27/2016 Results Test Result Range Complete blood count (CBC) with automate d white blood cell (WBC) differential - 12/20/16 10:45 Blood leukocytes automated count (number/volume) 5.3 10*3/uL 4.3-11.0 Blood erythrocytes automated count (number/volume) 4.31 10*6/uL 4.35-5.85 Venous blood hemoglobin measurement (mass/volume) 13.0 g/dL 11.5-16.0 Blood hematocrit (volume fraction) 39 % 35-52 Automated erythrocyte mean corpuscular volume 90 [ foz_us] 80-99 Automated erythrocyte mean corpuscular h emoglobin (mass per erythrocyte) 30 pg 25-34 Automated erythrocyte mean corpuscular h emoglobin concentration measurement (mass/volume) 34 g/dL 32-36 Automated erythrocyte distribution width ratio 13. 3 % 10.0- 14.5 Automated blood platelet count (count/volume) 224 10*3/uL 130-400 Automated blood platelet mean volume measurement 9.4 [foz_us] 7.4-10.4 Automated blood neutrophils/100 leukocytes 58 % 42-75 Automated blood lymphocytes/100 leukocytes 32 % 12-44 Blood monocytes/100 leukocytes 8 % 0-12 Automated blood eosinophils/100 leukocytes 2 % 0-10 Automated blood basophils/100 leukocytes 1 % 0-10 Blood neutrophils automated count (number/volume) 3.0 10*3 1.8-7.8 Blood lymphocytes automated count (number/volume) 1.7 10*3 1.0-4.0 Blood monocytes automated count (number/volume) 0. 4 10*3 0.0-1.0 Automated eosinophil count 0.1 10*3/uL 0 .0-0.3 Automated blood basophil count (count/volume) 0.1 10*3/uL 0.0-0.1 PT panel in platelet poor plasma by coag ulation assay - 12/20/16 10:45 Prothrombin time (PT) in platelet poor plasma by coagu lation assay 12.7 s 12.2-14.7 INR in platelet poor plasma or blood by coagulation as say 1.0 0.8-1.4 Erythrocyte sedimentation rate by bonifacio gren method - 12/20/16 10:45 Erythrocyte sedimentation rate by westergren method 11 mm 0- 30 Comprehensive metabolic panel - 12/20/16 10:45 Serum or plasma sodium measurement (moles/volume) 139 mmol/L 135-145 Serum or plasma potassium measurement (moles/volume) 4.1 mmol/L 3.6-5.0 Serum or plasma chloride measurement (moles/volume) 107 mmol/L 98-107 Carbon dioxide 24 mmol/L 21-32 Serum or plasma anion gap determination (moles/volume) 8 mmol/L 5-14 Serum or plasma urea nitrogen measurement (mass/volume ) 13 mg/dL 7-18 Serum or plasma creatinine measurement (mass/volume) 0.67 mg/dL 0.60-1.30 Serum or plasma urea nitrogen/creatinine mass ratio 19 NRG Serum or plasma creatinine measurement w ith calculation of estimated glomerular filtration rate > NRG Serum or plasma glucose measurement (mass/volume) 84 mg/dL 70-105 Serum or plasma calcium measurement (mass/volume) 9.9 mg/dL 8.5-10.1 Serum or plasma total bilirubin measurement (mass/volu me) 0.4 mg/dL 0.1-1.0 Serum or plasma alkaline phosphatase savana surement (enzymatic activity/volume) 86 U/L 40-136 Serum or plasma aspartate aminotransfera se measurement (enzymatic activity/volume) 24 U/L 5-34 Serum or plasma alanine aminotransferase measurement (enzymatic activity/volume) 15 U/L 0-55 Serum or plasma protein measurement (mass/volume) 7.1 g/dL 6.4-8.2 Serum or plasma albumin measurement (mass/volume) 4.1 g/dL 3.2-4.5 Blood type T Indirect antibody screen pa demetria - 12/20/16 10:45 ABO+Rh group AP NRG Blood group antibody screen NEGATIVE NR G Methicillin resistant Staphylococcus aur eus (MRSA) screening culture - 12/20/16 10:45 Methicillin resistant Staphylococcus aureus (MRSA) scr eening culture NEG NRG Complete urinalysis with reflex to cultu re - 12/20/16 10:47 Urine color determination YELLOW NRG Urine clarity determination CLEAR NR G Urine pH measurement by test strip 7 5-9 Specific gravity of urine by test strip 1.010 1.016-1.022 Urine protein assay by test strip, semi-quantitative NEGATIVE NEGATIVE Urine glucose detection by automated test strip NE GATIVE NEGATIVE Erythrocytes detection in urine sediment by light micr oscopy NEGATIVE NEGATIVE Urine ketones detection by automated test strip NE GATIVE NEGATIVE Urine nitrite detection by test strip NEGATIVE NEGATIVE Urine total bilirubin detection by test strip NEGA TIVE NEGATIVE Urine urobilinogen measurement by automated test strip (mass/volume) NORMAL NORMAL Urine leukocyte esterase detection by dipstick NEG ATIVE NEGATIVE Automated urine sediment erythrocyte cou nt by microscopy (number/high power field) NONE NRG Automated urine sediment leukocyte count by microscopy (number/high power field) NONE NRG Bacteria detection in urine sediment by light microsco py NEGATIVE NRG Squamous epithelial cells detection in u rine sediment by light microscopy RARE NRG Crystals detection in urine sediment by light microsco py NONE NRG Casts detection in urine sediment by light microscopy NONE NRG Mucus detection in urine sediment by light microscopy NEGATIVE NRG Complete urinalysis with reflex to culture NO NRG Blood type T Indirect antibody screen pa demetria - 12/27/16 06:33 ABO+Rh group AP NRG Transfusion band number [id number] NRG Blood group antibody screen NEGATIVE NR G Complete blood count (CBC) with automate d white blood cell (WBC) differential - 12/28/16 06:30 Blood leukocytes automated count (number/volume) 10.8 10*3/uL 4.3-11.0 Blood erythrocytes automated count (number/volume) 3.34 10*6/uL 4.35-5.85 Venous blood hemoglobin measurement (mass/volume) 9.9 g/dL 11.5-16.0 Blood hematocrit (volume fraction) 31 % 35-52 Automated erythrocyte mean corpuscular volume 91 [ foz_us] 80-99 Automated erythrocyte mean corpuscular h emoglobin (mass per erythrocyte) 30 pg 25-34 Automated erythrocyte mean corpuscular h emoglobin concentration measurement (mass/volume) 33 g/dL 32-36 Automated erythrocyte distribution width ratio 13. 1 % 10.0- 14.5 Automated blood platelet count (count/volume) 194 10*3/uL 130-400 Automated blood platelet mean volume measurement 9.9 [foz_us] 7.4-10.4 Automated blood neutrophils/100 leukocytes 75 % 42-75 Automated blood lymphocytes/100 leukocytes 16 % 12-44 Blood monocytes/100 leukocytes 8 % 0-12 Automated blood eosinophils/100 leukocytes 0 % 0-10 Automated blood basophils/100 leukocytes 0 % 0-10 Blood neutrophils automated count (number/volume) 8.1 10*3 1.8-7.8 Blood lymphocytes automated count (number/volume) 1.7 10*3 1.0-4.0 Blood monocytes automated count (number/volume) 0. 9 10*3 0.0-1.0 Automated eosinophil count 0.0 10*3/uL 0 .0-0.3 Automated blood basophil count (count/volume) 0.0 10*3/uL 0.0-0.1 Comprehensive metabolic panel - 12/28/16 06:30 Serum or plasma sodium measurement (moles/volume) 139 mmol/L 135-145 Serum or plasma potassium measurement (moles/volume) 3.8 mmol/L 3.6-5.0 Serum or plasma chloride measurement (moles/volume) 106 mmol/L 98-107 Carbon dioxide 23 mmol/L 21-32 Serum or plasma anion gap determination (moles/volume) 10 mmol/L 5-14 Serum or plasma urea nitrogen measurement (mass/volume ) 12 mg/dL 7-18 Serum or plasma creatinine measurement (mass/volume) 0.66 mg/dL 0.60-1.30 Serum or plasma urea nitrogen/creatinine mass ratio 18 NRG Serum or plasma creatinine measurement w ith calculation of estimated glomerular filtration rate > NRG Serum or plasma glucose measurement (mass/volume) 104 mg/dL 70-105 Serum or plasma calcium measurement (mass/volume) 9.5 mg/dL 8.5-10.1 Serum or plasma total bilirubin measurement (mass/volu me) 0.6 mg/dL 0.1-1.0 Serum or plasma alkaline phosphatase savana surement (enzymatic activity/volume) 79 U/L 40-136 Serum or plasma aspartate aminotransfera se measurement (enzymatic activity/volume) 26 U/L 5-34 Serum or plasma alanine aminotransferase measurement (enzymatic activity/volume) 18 U/L 0-55 Serum or plasma protein measurement (mass/volume) 6.1 g/dL 6.4-8.2 Serum or plasma albumin measurement (mass/volume) 3.6 g/dL 3.2-4.5 IRON TEST - 12/28/16 06:30 Serum or plasma iron measurement (mass/volume) 88 % 35-180 Complete blood count (CBC) with automate d white blood cell (WBC) differential - 12/29/16 06:12 Blood leukocytes automated count (number/volume) 8.6 10*3/uL 4.3-11.0 Blood erythrocytes automated count (number/volume) 2.99 10*6/uL 4.35-5.85 Venous blood hemoglobin measurement (mass/volume) 8.9 g/dL 11.5-16.0 Blood hematocrit (volume fraction) 27 % 35-52 Automated erythrocyte mean corpuscular volume 91 [ foz_us] 80-99 Automated erythrocyte mean corpuscular h emoglobin (mass per erythrocyte) 30 pg 25-34 Automated erythrocyte mean corpuscular h emoglobin concentration measurement (mass/volume) 33 g/dL 32-36 Automated erythrocyte distribution width ratio 13. 1 % 10.0- 14.5 Automated blood platelet count (count/volume) 163 10*3/uL 130-400 Automated blood platelet mean volume measurement 10.0 [foz_us] 7.4-10.4 Automated blood neutrophils/100 leukocytes 70 % 42-75 Automated blood lymphocytes/100 leukocytes 16 % 12-44 Blood monocytes/100 leukocytes 13 % 0-12 Automated blood eosinophils/100 leukocytes 0 % 0-10 Automated blood basophils/100 leukocytes 0 % 0-10 Blood neutrophils automated count (number/volume) 6.0 10*3 1.8-7.8 Blood lymphocytes automated count (number/volume) 1.4 10*3 1.0-4.0 Blood monocytes automated count (number/volume) 1. 2 10*3 0.0-1.0 Automated eosinophil count 0.0 10*3/uL 0 .0-0.3 Automated blood basophil count (count/volume) 0.0 10*3/uL 0.0-0.1 Comprehensive metabolic panel - 12/29/16 06:12 Serum or plasma sodium measurement (moles/volume) 137 mmol/L 135-145 Serum or plasma potassium measurement (moles/volume) 3.9 mmol/L 3.6-5.0 Serum or plasma chloride measurement (moles/volume) 106 mmol/L 98-107 Carbon dioxide 23 mmol/L 21-32 Serum or plasma anion gap determination (moles/volume) 8 mmol/L 5-14 Serum or plasma urea nitrogen measurement (mass/volume ) 9 mg/dL 7-18 Serum or plasma creatinine measurement (mass/volume) 0.61 mg/dL 0.60-1.30 Serum or plasma urea nitrogen/creatinine mass ratio 15 NRG Serum or plasma creatinine measurement w ith calculation of estimated glomerular filtration rate > NRG Serum or plasma glucose measurement (mass/volume) 108 mg/dL 70-105 Serum or plasma calcium measurement (mass/volume) 9.0 mg/dL 8.5-10.1 Serum or plasma total bilirubin measurement (mass/volu me) 0.5 mg/dL 0.1-1.0 Serum or plasma alkaline phosphatase savana surement (enzymatic activity/volume) 68 U/L 40-136 Serum or plasma aspartate aminotransfera se measurement (enzymatic activity/volume) 29 U/L 5-34 Serum or plasma alanine aminotransferase measurement (enzymatic activity/volume) 17 U/L 0-55 Serum or plasma protein measurement (mass/volume) 5.6 g/dL 6.4-8.2 Serum or plasma albumin measurement (mass/volume) 3.2 g/dL 3.2-4.5 Complete blood count (CBC) with automate d white blood cell (WBC) differential - 12/30/16 06:10 Blood leukocytes automated count (number/volume) 8.4 10*3/uL 4.3-11.0 Blood erythrocytes automated count (number/volume) 3.02 10*6/uL 4.35-5.85 Venous blood hemoglobin measurement (mass/volume) 9.1 g/dL 11.5-16.0 Blood hematocrit (volume fraction) 28 % 35-52 Automated erythrocyte mean corpuscular volume 91 [ foz_us] 80-99 Automated erythrocyte mean corpuscular h emoglobin (mass per erythrocyte) 30 pg 25-34 Automated erythrocyte mean corpuscular h emoglobin concentration measurement (mass/volume) 33 g/dL 32-36 Automated erythrocyte distribution width ratio 13. 0 % 10.0- 14.5 Automated blood platelet count (count/volume) 177 10*3/uL 130-400 Automated blood platelet mean volume measurement 9.1 [foz_us] 7.4-10.4 Automated blood neutrophils/100 leukocytes 67 % 42-75 Automated blood lymphocytes/100 leukocytes 22 % 12-44 Blood monocytes/100 leukocytes 10 % 0-12 Automated blood eosinophils/100 leukocytes 1 % 0-10 Automated blood basophils/100 leukocytes 0 % 0-10 Blood neutrophils automated count (number/volume) 5.6 10*3 1.8-7.8 Blood lymphocytes automated count (number/volume) 1.8 10*3 1.0-4.0 Blood monocytes automated count (number/volume) 0. 8 10*3 0.0-1.0 Automated eosinophil count 0.1 10*3/uL 0 .0-0.3 Automated blood basophil count (count/volume) 0.0 10*3/uL 0.0-0.1 Comprehensive metabolic panel - 12/30/16 06:10 Serum or plasma sodium measurement (moles/volume) 138 mmol/L 135-145 Serum or plasma potassium measurement (moles/volume) 3.6 mmol/L 3.6-5.0 Serum or plasma chloride measurement (moles/volume) 107 mmol/L 98-107 Carbon dioxide 24 mmol/L 21-32 Serum or plasma anion gap determination (moles/volume) 7 mmol/L 5-14 Serum or plasma urea nitrogen measurement (mass/volume ) 8 mg/dL 7-18 Serum or plasma creatinine measurement (mass/volume) 0.59 mg/dL 0.60-1.30 Serum or plasma urea nitrogen/creatinine mass ratio 14 NRG Serum or plasma creatinine measurement w ith calculation of estimated glomerular filtration rate > NRG Serum or plasma glucose measurement (mass/volume) 105 mg/dL 70-105 Serum or plasma calcium measurement (mass/volume) 9.3 mg/dL 8.5-10.1 Serum or plasma total bilirubin measurement (mass/volu me) 0.9 mg/dL 0.1-1.0 Serum or plasma alkaline phosphatase savana surement (enzymatic activity/volume) 87 U/L 40-136 Serum or plasma aspartate aminotransfera se measurement (enzymatic activity/volume) 70 U/L 5-34 Serum or plasma alanine aminotransferase measurement (enzymatic activity/volume) 35 U/L 0-55 Serum or plasma protein measurement (mass/volume) 5.8 g/dL 6.4-8.2 Serum or plasma albumin measurement (mass/volume) 3.2 g/dL 3.2-4.5 Methicillin resistant Staphylococcus aur eus (MRSA) screening culture - 08/08/19 10:30 Methicillin resistant Staphylococcus aureus (MRSA) scr eening culture NEG NRG Encounters ACCT No. Visit Date/Time Discharge Status Pt. Type Provider Facility Loc./Unit Complaint [id number] 08/20/2019 07:30:00 14:15:00 [facility] [id number] 08/08/2019 09:56:00 10:29:00 DIS Outpatient MATA HART MD [facility] PREOP RIGHT ROTATOR CUFF TEA R [id number] 07/16/2019 07:40:00 23:59:59 CLS Outpatient MATA HART MD [facility] RAD ROTATOR CUFF TEAR [id number] 04/23/2019 07:34:00 23:59:59 CLS Outpatient ANNABEL PURI MD [facility] CARD CHF, CAROTID ARTERY SOLA NOSIS [id number] 04/18/2019 08:41:00 019 23:59:59 CLS Outpatient ANNABEL PURI MD [facility] CARD CHF, CAROTID ARTERY SOLA NOSIS [id number] 08/06/2018 08:59:00 018 23:59:59 CLS Outpatient ORACIO ROBLERO MD [facility] RAD SCREENING [id number] 10/19/2017 09:32:00 018 23:59:59 CLS Outpatient ANNABEL PURI MD [facility] CARD CHF I50.32 [id number] 07/19/2017 08:06:00 017 23:59:59 CLS Outpatient JEFFREY ROLDAN, GARETH Garland [facility] RAD ABN MAMMO [id number] 02/16/2017 12:56:00 017 17:04:00 DIS Outpatient MATA HART MD [facility] REHAB S/P L TKR [id number] 12/27/2016 06:10:00 017 12:00:00 DIS Inpatient MATA HART MD [facility] 4TH LEFT KNEE OTHEOARTHRITI S [id number] 12/20/2016 09:57:00 11:00:00 DIS Outpatient MATA HART MD [facility] PREOP LEFT TOTAL KNEE OSTEOA RTHRITIS [id number] 11/01/2016 12:57:00 23:59:59 CLS Outpatient GARETH MURPHY MD [facility] RAD PAIN OF LT KNEE AND LOW ER LEG [id number] 07/26/2016 12:32:00 14:18:00 DIS Emergency SHANE KAUFMAN [place] DROSOPHERE OPERATOR [facility] ER FALL, HEAD LAC [id number] 07/05/2016 13:01:00 23:59:59 CLS Outpatient GARETH MURPHY MD [facility] RAD FOCAL ASYMMETRY INFERIO R ASPECT RT BREAST [id number] 06/28/2016 09:11:00 016 23:59:59 CLS Outpatient GARETH MURPHY MD [facility] RAD ROUTINE [id number] 02/21/2016 12:29:00 10:40:00 DIS Inpatient GARETH MURPHY MD [facility] CSD SYNCOPE [id number] 02/18/2016 10:39:00 016 23:59:59 CLS Outpatient SERVANDO HENRY, ABBE Burgos [facility] CARD CHF,HTN,LBBB,PALPITATIONS [id number] 04/30/2015 09:34:00 23:59:59 CLS Outpatient GARETH MURPHY MD [facility] RAD SCREENING [id number] 04/05/2015 06:00:00 19:25:00 DIS Outpatient SWATHI ARNETT MD [facility] SDC CYSTOCELE; RECT OCELE; VAGINAL PROLAPSE [id number] 04/01/2015 11:30:00 23:59:59 CLS Outpatient HOPE ROLDAN, SWATHI Gorman [facility] PREOP CYSTOCELE; RECT OCELE; VAGINAL PROLAPSE [id number] 03/11/2015 12:40:00 015 10:03:00 DIS Inpatient GARETH MURPHY MD [facility] 4TH ERYSIPELAS [id number] 01/15/2015 07:43:00 23:59:59 CLS Outpatient ABBE IRVIN [facility] CARD CHF HTN HLE [id number] 06/05/2014 08:59:00 014 23:59:59 CLS Outpatient ABBE IRVIN [facility] LAB AR,HTN,CF [id number] 05/13/2014 09:29:00 014 23:59:59 CLS Outpatient GARETH MURPHY MD [facility] RAD SCREENING [id number] 03/06/2014 13:37:00 014 23:59:59 CLS Outpatient GARETH MURPHY MD [facility] RAD ROUTINE [id number] 01/05/2014 14:24:00 014 23:59:59 CLS Outpatient GARETH MURPHY MD R [facility] RAD PAINFUL R CALF,SWELLING [id number] 12/26/2013 12:38:00 014 23:59:59 CLS Outpatient ABBE IRVIN [facility] CARD CHF,LEISA,HTN ,HLP [id number] 11/11/2013 09:18:00 014 23:59:59 CLS Outpatient ABBE IRVIN [facility] LAB CAD,HTN,HYPERLIPDEMIA,CHF [id number] 06/23/2013 18:15:00 013 22:12:00 DIS Emergency VENTURA JUSTIN YEUNG [facility] ER FALL [id number] 05/14/2013 08:57:00 23:59:59 CLS Outpatient BERNADETTE BEYERP [facility] LAB HLP [id number] 04/21/2013 12:29:00 17:25:00 DIS Outpatient ANNETTE VAZQUEZ DDS [facility] SDC NASAL BONE FRACTURE [id number] 04/18/2013 14:27:00 23:59:59 CLS Outpatient ANNETTE VAZQUEZ DDS [facility] PREOP NASAL BONE FRACTURE [id number] 04/12/2013 19:48:00 22:04:00 DIS Emergency ESTEBAN ROLDAN, ANGELA Mcmanus [facility] ER INJ FROM FALL [id number] 02/25/2013 09:29:00 23:59:59 CLS Outpatient JEFFREY ROLDAN, GARETH [place] [facility] RAD SCREENING [id number] 09/12/2019 13:58:[address] Outpatient MATA HART MD [facility] REHAB COMP ROT CUFF TEAR OR RUPTUR E R SHOULDER [id number] 11/27/2012 10:58:00 Document Registration [id number] 10/22/2012 08:32:00 Document Registration [id number] 10/17/2012 08:46:00 Document Registration [id number] 04/01/2012 07:36:00 Document Registration [id number] 02/07/2012 12:52:00 Document Registration [id number] 11/07/2011 08:55:00 Document Registration [id number] 09/14/2011 12:57:00 Document Registration [id number] 06/27/2011 16:48:00 Document Registration [id number] 06/19/2011 12:37:00 Document Registration [id number] 04/12/2011 09:51:00 Document Registration [id number] 02/15/2011 10:19:00 Document Registration [id number] 01/18/2011 13:35:00 Document Registration
== END 2019-08-20 14:15 | disposition home or self-care (01) ==
LOC: SDC 07:30
PROVIDERS: ATTEND Orthopaedic Surgery
DX: S46.011A Strain of muscle(s) and tendon(s) of the rotator cuff of right shoulder, initial encounter (principal); M24.111 Other articular cartilage disorders, right shoulder; G89.18 Other acute postprocedural pain; I11.9 Hypertensive heart disease without heart failure; H35.30 Unspecified macular degeneration; Z88.5 Allergy status to narcotic agent; Z90.49 Acquired absence of other specified parts of digestive tract; Z90.710 Acquired absence of both cervix and uterus; Z96.652 Presence of left artificial knee joint; Z79.899 Other long term (current) drug therapy

== ENCOUNTER 2019-11-17 12:58 | Outpatient (RCR) | payer MEDICARE ==
[~2019-11-17 12:58] MED LIST changes: +OXYC-471 PO; -oxyCODONE/APAP 5/325MG (PERCOCET 5) TABLET PO PRN
== END 2019-11-19 | disposition home or self-care (01) ==
PROVIDERS: ATTEND Orthopaedic Surgery
DX: M75.121 Complete rotator cuff tear or rupture of right shoulder, not specified as traumatic (principal); H26.9 Unspecified cataract; I50.9 Heart failure, unspecified; Z96.652 Presence of left artificial knee joint; Z98.890 Other specified postprocedural states

== ENCOUNTER 2019-12-01 14:07 | Outpatient (RCR) | payer MEDICARE | END 2020-02-18 | disposition home or self-care (01) | PROVIDERS: ATTEND Orthopaedic Surgery | DX: M75.121 Complete rotator cuff tear or rupture of right shoulder, not specified as traumatic (principal); H26.9 Unspecified cataract; I50.9 Heart failure, unspecified; Z96.652 Presence of left artificial knee joint; Z98.890 Other specified postprocedural states ==

== ENCOUNTER → 2020-11-23 | Outpatient (CLI) | payer MEDICARE ==
[~2020-11-23] MED LIST changes: +AMLO-251 PO; -AMLO10TA7 PO; -OXYC-471 PO; +OXYC1TAB11 PO
--- NOTE | 2020-11-23 19:35 | Diagnostic Imaging Report ---
INDICATION: Routine screening. Comparison is made with prior mammogram 08/06/2018 and 07/19/2017. 2-D and 3-D bilateral screening mammography was performed with CAD. The current study was also evaluated with a Computer Aided Detection (CAD) system. 3-D tomosynthesis was also performed and reviewed. Both breasts are heterogeneously dense, limiting the sensitivity of mammography. There is a circumscribed nodule in the lower aspect of the right breast at approximately 6:00 location approximately 5 cm from the nipple. This appears slightly more prominent than prior exams. Ultrasound would be recommended. Left breast is unremarkable. There are benign calcifications. No malignant appearing microcalcifications are seen. Axillae are unremarkable. IMPRESSION: Circumscribed nodule lower right breast mid depth approximately 5 cm from the nipple. Further evaluation with ultrasound is recommended. ACR BI-RADS Category 0: Incomplete. (Needs additional imaging evaluation). Result letter will be mailed to the patient. Note: At least 10% of breast cancer is not imaged by mammography. Dictated by: Dictated on workstation # [id number]
== END ==
LOC: RAD 12:46
PROVIDERS: ATTEND Family Medicine
DX: Z12.31 Encounter for screening mammogram for malignant neoplasm of breast (principal); N63.20 Unspecified lump in the left breast, unspecified quadrant
CPT/HCPCS: 77063; 77067

== ENCOUNTER → 2020-12-01 | Outpatient (CLI) | payer MEDICARE ==
--- NOTE | 2020-12-01 11:05 | Diagnostic Imaging Report ---
INDICATION: Right breast nodule. Study is performed for further evaluation. Correlation is made with the screening mammogram from 11/23/2020. Sonographic interrogation inferior right breast demonstrates a simple cyst 7 o'clock location, 3 cm from the nipple measuring 4 mm x 3 mm x 4 mm. This likely accounts for the mammographic density. No solid masses are seen. This is similar in size to a cyst noted on ultrasound at this location from 07/05/2016. IMPRESSION: BI-RADS Category 2 Simple cyst 7 o'clock location right breast, 3 cm from the nipple, accounting for the mammographic density. Patient may return to routine annual screening mammography. ACR BI-RADS Category 2: Benign findings. Result letter will be mailed to the patient. Note: At least 10% of breast cancer is not imaged by mammography. Dictated by: Dictated on workstation # [id number]
== END ==
LOC: RAD 09:32
PROVIDERS: ATTEND Family Medicine
DX: N63.13 Unspecified lump in the right breast, lower outer quadrant (principal)

== ENCOUNTER → 2022-08-23 | Outpatient (CLI) | payer MEDICARE ==
[~2022-08-23] MED LIST changes: -BENA40TA5 PO; +BENA40TA84 PO
--- NOTE | 2022-08-23 16:35 | Diagnostic Imaging Report ---
INDICATION: Right hip pain. Comparison with 06/23/2013. FINDINGS: 2 views. AP and frog-leg. There has been rather advanced degenerative arthritic disease. There is mild cephalad migration humeral head. There is sclerosis along the acetabular rim. There has been development of considerable hypertrophic change along the labral rim. Femoral head is smooth with no evidence of the fracture or osteonecrosis. No soft tissue calcification about the hip. The right SI joint shows sclerotic bony lipping from the inferior one third. IMPRESSION: 1. There has been progression of moderate severe arthritic disease right hip. Also of the right SI joint. No acute abnormalities. Dictated by: Dictated on workstation # [id number]
== END ==
LOC: ORTHO 10:27
PROVIDERS: ATTEND Orthopaedic Surgery
DX: M70.61 Trochanteric bursitis, right hip (principal); I27.20 Pulmonary hypertension, unspecified; E78.2 Mixed hyperlipidemia; I10 Essential (primary) hypertension
CPT/HCPCS: 73502; G0463; 99203

== ENCOUNTER → 2023-05-30 | Outpatient (CLI) | payer MEDICARE ==
[~2023-05-30] VITALS: Ht 160 cm; Wt 60.0 kg
[~2023-05-30] MED LIST changes: +REGADENOSON 0.4 MG/5 ML SYR IV ONE
[2023-05-30] MEDS: CATHETER FLUSH 10 ML SYR IVP PRN ×2 (12:05→13:21)
[2023-05-30 13:17] VITALS: BP 152/61
--- NOTE | 2023-05-30 15:12 | Cardiology Stress Test Report ---
Stress Test Report Date of Procedure/Referring: Date of Procedure: May 30, 2023 PCP Mp Roblero MD Admitting Physician Admitting Physician: Attending Physician: Renee Good MD Indications: CP Baseline Heart Rate: 56 Baseline Blood Pressure: Blood Pressure Systolic: 152 Blood Pressure Diastolic: 61 Baseline Vitals Vital Signs Date Time Temp Pulse Resp B/P (MAP) Pulse Ox O2 Delivery O2 Flow Rate FiO2 05/30/23 13:17 56 16 152/61 (91) 97 Room Air Baseline EKG: Baseline EKG: LBBB Summary After explaining the procedure to the patient, she signed a consent and then brought to the stress nuclear laboratory. Patient received 0.4 mg Lexiscan for stress test, ECG, heart rate and blood pressure were monitored continuously. Resting and stress dose of radio tracer were injected, imaging was acquired and reviewed in short axis, horizontal long axis and vertical long axis views. TID: 1.14 SSS: 6 SDS: 5 EF: 52 Patient tolerated Lexiscan well Baseline left bundle branch block persisted during test Breast attenuation and left bundle branch block affecting the quality of the study there is a questionable reversible ischemia involving the mid to apical anterior wall and anterior septum. Normal left ventricular size, ejection fraction 52% Copy Copies To 1: MP ROBLERO MD, BASHAR J MD May 30, 2023 15:12
== END ==
LOC: CARD 11:52
PROVIDERS: ATTEND Internal Medicine Cardiovascular Disease
DX: I44.7 Left bundle-branch block, unspecified (principal); N64.89 Other specified disorders of breast; R07.2 Precordial pain; I10 Essential (primary) hypertension; I25.10 Atherosclerotic heart disease of native coronary artery without angina pectoris
CPT/HCPCS: 78452; 93017; A9502

== ENCOUNTER 2023-06-20 07:49 | Day surgery (SDC) | payer MEDICARE ==
[2023-06-20] VITALS (9 sets, daily range): BP systolic 100–146; BP diastolic 50–66
[~2023-06-20] VITALS: Ht 162 cm; Wt 62.9 kg
[~2023-06-20 07:49] MED LIST changes: -REGADENOSON 0.4 MG/5 ML SYR IV ONE
[2023-06-20] MEDS ORDERED: HEParin (CATH LAB) 2,000 ML IV ONE (08:04)
[2023-06-20] MEDS ORDERED: LIDOCAINE 1% INJ 20 ML VIAL ONE (08:04)
[2023-06-20] MEDS ORDERED: NS IV 1000 ML 1,000 ML ONE (08:04)
--- NOTE | 2023-06-20 08:24 | Diagnostic Imaging Report ---
Indication: Pre-heart catheterization. Time of Exam: 8:03 AM Correlation is made with prior chest from 06/23/2013. Heart is mildly enlarged. Lungs are clear. No infiltrates are detected. There is no effusion or pneumothorax. There are postoperative changes to the right shoulder. IMPRESSION: Mild cardiomegaly. No other significant abnormality is detected. Dictated by: Dictated on workstation # [id number]
[2023-06-20 08:28] LABS: HEMATOCRIT 38 % (35-52); HEMOGLOBIN 12.8 g/dL (11.5-16.0); MEAN CORPUSCULAR HEMOGLOBIN 30 pg (25-34); MEAN CORPUSCULAR HGB CONC 34 g/dL (32-36); MEAN CORPUSCULAR VOLUME 90 fL (80-99); MEAN PLATELET VOLUME 9.4 fL (9.0-12.2); PLATELET COUNT 238 10^3/uL (130-400); WHITE BLOOD COUNT 7.1 10^3/uL (4.3-11.0)
[2023-06-20 08:41] LABS: PROTHROMBIN TIME PATIENT 13.2 SEC (12.2-14.7)
[2023-06-20] MEDS ORDERED: ACET325T38 PO (08:45)
[2023-06-20] MEDS ORDERED: CETI10TA17 PO (08:45)
[2023-06-20] MEDS ORDERED: VITA400T7 PO (08:45)
[2023-06-20] MEDS ORDERED: ANTI1CAP5 PO (08:45)
[2023-06-20] MEDS ORDERED: ASPI-1238 PO (08:45)
[2023-06-20] MEDS ORDERED: CHOL10004 PO (08:45)
[2023-06-20] MEDS ORDERED: CLC600T PO (08:45)
[2023-06-20] MEDS ORDERED: AMOX500T2 PO (08:48)
[2023-06-20 08:49] LABS: ALBUMIN 4.2 GM/DL (3.2-4.5); BILIRUBIN,TOTAL 0.5 MG/DL (0.1-1.0); CALCIUM 10.4 MG/DL (8.5-10.1); CREATININE SERUM 0.67 MG/DL (0.60-1.30); POTASSIUM 3.8 MMOL/L (3.6-5.0); TOTAL PROTEIN 7.6 GM/DL (6.4-8.2)
[2023-06-20 09:13] LABS: CLARITY,URINE CLEAR; COLOR,URINE YELLOW
[2023-06-20 09:14] LABS: BACTERIA,URINE NEGATIVE /HPF; BILIRUBIN,URINE NEGATIVE (NEGATIVE); GLUCOSE, URINE (UA) NEGATIVE (NEGATIVE); KETONES,URINE NEGATIVE (NEGATIVE); LEUKOCYTE ESTERASE ,URINE 1+ (NEGATIVE); NITRITE,URINE NEGATIVE (NEGATIVE); PROTEIN,URINE NEGATIVE (NEGATIVE); RBC,URINE 0-2 /HPF; SQUAMOUS EPITHELIAL CELL,UR 0-2 /HPF; WBC,URINE RARE /HPF
--- NOTE | 2023-06-20 11:04 | Cardiac Procedure Note-CS/ASA ---
Pre-Procedure Note Pre-Op Procedure Note Date of Available H&P: May 31, 2023 Date H&P Reviewed: Jun 20, 2023 Time H&P Reviewed: 11:03 History & Physical: H&P Reviewed, Patient Examed, No changes noted Pre-Operative Diagnosis: CAD Moderate Sedation PreProcedure Time 11:04 ASA Score 3 Airway Lungs Heart ASA score ASA 1: a normal healthy patient ASA 2: a patient with a mild systemic disease (mid diabetes, controlled hypertension, obesity ASA 3: a patient with a severe systemic disease that limits activity (angina, COPD, prior Myocardial infarction) ASA 4: a patient with an incapacitating disease that is a constant threat to life (CHF, renal failure) ASA 5: a moribund patient not expected to survive 24 hrs. (ruptured aneurysm) ASA 6: a declared brain- patient whose organs are being harvested. For emergent operations, add the letter E after the classification Mallampati Classification Grade 3 Sedation Plan Analgesia, Amnesia, Plan communicated to team members, Discussed options with patient/fam, Discussed risks with patient/fam The patient is an appropriate candidate to undergo the planned procedure, sedation, and anesthesia. The patient immediately re-assessed prior to indication. ANNABEL PURI MD Jun 20, 2023 11:04
[2023-06-20] MEDS ORDERED: HEParin 1000 UNIT/ML (10ML VIAL) FOR BOLUS ONE (11:30)
[2023-06-20] MEDS ORDERED: MIDAZOLAM INJ 5 MG/5 ML VIAL ONE (11:30)
[2023-06-20] MEDS ORDERED: VERAPAMIL 5 MG/2 ML (CALAN) VIAL IV ONE (11:30)
[2023-06-20] MEDS ORDERED: fentaNYL INJECTION 100 MCG/2 ML VIAL ONE (11:30)
[2023-06-20] MEDS ORDERED: NITRO DRIP 25000 MCG/D5W 250 ML IV ONE (11:33)
--- NOTE | 2023-06-20 11:57 | Discharge Inst-Post CATH ---
Discharge Inst-CATH/EP Problems Reviewed?: Yes Post Cardiac Cath/EP D/C Inst Follow Up/Plan Appointment with Dr. Good's office in 2 to 4 weeks <b>CARDIAC CATH/EP PROCEDURE DISCHARGE INSTRUCTIONS</b> ACTIVITY * Go Home directly and rest. * Limit activity of the leg (or wrist if it was used) for 7 days including aer obics, swimming, jogging, bicycling, etc. * Restrict stair-climbing for 7 days if possible, if not, climb up with your non-cath leg, then bring together on the same step. * Avoid lifting, pushing, pulling or excessive movement of the affected extremi ty for 7 days. * Customary sexual activity may be resumed after 2 days-use caution not to use a position that strains or causes pain to the affected extremity. * No driving for 24 hours. * NO SMOKING. * Avoid straining for bowel movements for 7 days. * Gentle walking on level ground is allowed. * Returning to work will depend on the type of procedure and the results. Your doctor will discuss this with you. CALL YOUR DOCTOR FOR ANY OF THE FOLLOWING: *If bleeding from the puncture site occurs- Apply gentle pressure to site with clean cloth and call your doctor or EMS. * If a knot or lump forms under the skin, increases in size, or causes pain. * If bruising appears to be worsening or moving further down your leg instead of disappearing. * Temperature above 101 F. CARE OF YOUR GROIN INCISION; * Bruising or purple discoloration of the skin near the puncture site is common. * You may shower only, no bathtub bathing for 5 days. Be careful to avoid slipping as your leg may feel stiff. * If a closure device was used on your femoral artery, please see the attached guide regarding care of the device and your leg. * Leave dressing on FOR 24 hours. CARE OF YOUR WRIST INCISION; * Bruising or purple discoloration of the skin near the puncture site is common. * You may shower. * DO NOT submerge wrist. * Leave dressing on FOR 24 hours. ANNABEL GOOD MD Jun 20, 2023 11:57
--- NOTE | 2023-06-20 11:59 | Cardiac Cath Report ---
Cardiac Cath Report Physician (s)/Floorworker Lasting (s) Physician ANNABEL PURI MD Pre-Procedure Diagnosis Pre-Procedure Diagnosis: CAD Post-Procedure Note Procedure Start Date: Jun 20, 2023 Name of Procedure: Left heart catheterization Findings/Procedure Note PROCEDURE NOTE: 87-year-old lady with history of hypertension, hyperlipidemia, had an abnormal stress test, scheduled for cardiac catheterization possible PTCA. After explaining the procedure to the patient, all pros and cons were explained, all questions were answered. The patient signed the consent and then she was placed in the cardiac catheterization laboratory. Groin was prepped in SL fashion local anesthesia was used. Sheath placed in the right radial artery, [place] catheter was advanced to the left ventricular cavity, pressure was measured, pullback LV to aorta was done, engage the right and left coronary system, angiogram was done. At the end of the procedure the sheath was removed. Vascular band was used FINDINGS: Hemodynamics LV 114/19, end-diastolic pressure of 19 Aorta 114/83 mean of 74 ANATOMY: Left Main is free of obstructive disease Left Anterior Descending is moderate in size with no obstructive disease Left Circumflex is dominant artery with no obstructive disease Right Coronary Artery is nondominant artery moderate in size with no obstructive disease LV Gram was not done, pressure was measured CONCLUSION: Dominant circumflex system with nonobstructive disease Moderately elevated left ventricular end-diastolic pressure DISCUSSION AND RECOMMENDATION: Continue to maximize medical therapy. No intervention is warranted Anesthesia Type: Conscious Sedation Estimated blood loss (mL): 10 ml Contrast Amount: 30 ml Total Radiation Dose: 209 mGy Post-Procedure Diagnosis Post-operative diagnosis: Chest pain Coronary artery disease Hypertension Hyperlipidemia ANNABEL PURI MD Jun 20, 2023 11:59
[2023-06-20] MEDS ORDERED: NS IV 1000 ML 1,000 ML IV SCH (12:00)
[2023-06-20] MEDS: NS IV 1000 ML 1,000 ML IV ONE ×2 (12:05→14:05)
== END 2023-06-20 14:30 ==
LOC: CANPRESDC → CATH 07:49 → SDC 12:09 → CATH 14:30
PROVIDERS: ATTEND Internal Medicine Cardiovascular Disease
DX: I25.10 Atherosclerotic heart disease of native coronary artery without angina pectoris (principal); I10 Essential (primary) hypertension; I50.9 Heart failure, unspecified; R94.39 Abnormal result of other cardiovascular function study; I44.7 Left bundle-branch block, unspecified; I27.20 Pulmonary hypertension, unspecified; I65.29 Occlusion and stenosis of unspecified carotid artery; E78.2 Mixed hyperlipidemia; Z86.79 Personal history of other diseases of the circulatory system
CPT/HCPCS: 71045; 80053; 80061; 81000; 85027; 85610; 85730; 87081; 93005; 93458; C1894; 36415